=== PATIENT | female | born 1995 | race Caucasian/White ===

== ENCOUNTER 2019-05-04 00:30 | Emergency (ER) | payer SELFPAY ==
[2019-05-04] MEDS ORDERED: ALBUTEROL 2.5 MG/3 ML NEB SOL ONE ×2 (00:51→01:39)
[2019-05-04] MEDS ORDERED: AZITHROMYCIN 250 MG TAB ONE (00:51)
[2019-05-04] MEDS ORDERED: IPRATROPIUM BROM 0.5MG/2.5ML ONE (00:51)
[2019-05-04] MEDS ORDERED: predniSONE 20 MG TAB ONE (00:52)
[2019-05-04 01:58] LABS: Urine Blood NEGATIVE (NEG); Urine Glucose NEGATIVE (NEG); Urine Protein NEGATIVE (NEG); Urine pH 7.5 (5.0-7.0)
--- NOTE | 2019-05-04 03:06 | EDPHYS ---
Physician Documentation [facility] Name: Guillermina Akins Age: 24 yrs Sex: Female : 1995 Arrival Date: 05/04/2019 Time: 00:31 Bed X-Ray Private MD: ED Physician Jeff Torres HPI: 05/04 00:49 This 24 yrs old Female presents to ER via Ambulatory with complaints of rubén Shortness Of Breath. 00:49 The patient has shortness of breath at rest, with light activity. Onset: The rubén symptoms/episode began/occurred 2 day(s) ago. Duration: The symptoms are continuous, and are steadily getting worse. The patient's shortness of breath is aggravated by coughing, supine position, talking, walking, is alleviated by rest, sitting up, application of supplemental oxygen. Associated signs and symptoms: The patient has no apparent associated signs or symptoms. Severity of symptoms: At their worst the symptoms were mild moderate in the emergency department the symptoms are worse. The patient has experienced similar episodes in the past, a few times. 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 - Social history:: Smoking status: Patient/guardian denies using tobacco. - Ebola Screening: : Patient denies exposure to infectious person Patient denies travel to an Ebola-affected area in the 21 days before illness onset. - Family history:: not pertinent. ROS: 00:49 Constitutional: Negative for fever, chills, and weight loss, Eyes: Negative for injury, rubén pain, redness, and discharge, ENT: Negative for injury, pain, and discharge, Neck: Negative for injury, pain, and swelling, Cardiovascular: Negative for chest pain, palpitations, and edema, Abdomen/GI: Negative for abdominal pain, nausea, vomiting, diarrhea, and constipation, Back: Negative for injury and pain, : Negative for injury, bleeding, discharge, and swelling, MS/Extremity: Negative for injury and deformity, Skin: Negative for injury, rash, and discoloration, Neuro: Negative for headache, weakness, numbness, tingling, and seizure, Psych: Negative for depression, anxiety, suicide ideation, homicidal ideation, and hallucinations, Allergy/Immunology: Negative for hives, rash, and allergies, Endocrine: Negative for neck swelling, polydipsia, polyuria, polyphagia, and marked weight changes, Hematologic/Lymphatic: Negative for swollen nodes, abnormal bleeding, and unusual bruising. 00:49 Respiratory: Positive for cough, dyspnea on exertion, shortness of breath, wheezing, expiratory. Exam: 00:49 Constitutional: This is a well developed, well nourished patient who is awake, alert, rubén and in no acute distress. Head/Face: Normocephalic, atraumatic. Eyes: Pupils equal round and reactive to light, extra-ocular motions intact. Lids and lashes normal. Conjunctiva and sclera are non-icteric and not injected. Cornea within normal limits. Periorbital areas with no swelling, redness, or edema. ENT: Nares patent. No nasal discharge, no septal abnormalities noted. Tympanic membranes are normal and external auditory canals are clear. Oropharynx with no redness, swelling, or masses, exudates, or evidence of obstruction, uvula midline. Mucous membranes moist. Neck: Trachea midline, no thyromegaly or masses palpated, and no cervical lymphadenopathy. Supple, full range of motion without nuchal rigidity, or vertebral point tenderness. No Meningismus. Chest/axilla: Normal chest wall appearance and motion. Nontender with no deformity. No lesions are appreciated. Cardiovascular: Regular rate and rhythm with a normal S1 and S2. No gallops, murmurs, or rubs. Normal PMI, no JVD. No pulse deficits. Abdomen/GI: Soft, non-tender, with normal bowel sounds. No distension or tympany. No guarding or rebound. No evidence of tenderness throughout. Back: No spinal tenderness. No costovertebral tenderness. Full range of motion. Skin: Warm, dry with normal turgor. Normal color with no rashes, no lesions, and no evidence of cellulitis. MS/ Extremity: Pulses equal, no cyanosis. Neurovascular intact. Full, normal range of motion. Neuro: Awake and alert, GCS 15, oriented to person, place, time, and situation. Cranial nerves II-XII grossly intact. Motor strength 5/5 in all extremities. Sensory grossly intact. Cerebellar exam normal. Normal gait. Psych: Awake, alert, with orientation to person, place and time. Behavior, mood, and affect are within normal limits. 00:49 Respiratory: the patient does not display signs of respiratory distress, Respirations: labored breathing, that is mild, Breath sounds: bronchial sounds, decreased breath sounds, rhonchi, wheezing: expiratory Respiratory rate: 20 03:04 Musculoskeletal/extremity: DVT Exam: No signs of deep vein thrombosis. no pain, no rubén swelling, no tenderness, negative Homans' sign noted on exam, no appreciated bluish discoloration, no erythema, no increased warmth. Vital Signs: 00:35 BP 137 / 78; Pulse 84; Resp 20; Temp 98.7; Pulse Ox 100% on R/A; Weight 74.84 kg; aa1 Height 5 ft. 2 in. (157.48 cm); Pain 7/10; 02:08 BP 125 / 75; Pulse 85; Resp 17; Temp 98.8; Pulse Ox 99% on R/A; rr5 03:30 BP 101 / 65; Pulse 98; Resp 18; Temp 99.1; Pulse Ox 99% ; rr5 00:35 Body Mass Index 30.18 (74.84 kg, 157.48 cm) [facility] MDM: 00:33 Patient medically screened. [facility] 00:51 Data reviewed: vital signs, nurses notes, lab test result(s), radiologic studies, plain rubén films. 05/04 00:48 Order name: Urine Culture [facility] 05/04 01:38 Order name: Urine Dipstick--Ancillary (enter results) [facility] 05/04 00:48 Order name: Chest Pa And Lat (2 Views) XRAY [facility] 05/04 01:38 Order name: Urine --Ancillary (enter results) [facility] 05/04 01:39 Order name: Urine Dipstick-Ancillary; Complete Time: 03:04 [facility] 05/04 01:39 Order name: Urine --Ancillary; Complete Time: 03:04 [facility] 05/04 00:48 Order name: Urine Dipstick-Ancillary (obtain specimen); Complete Time: 01:33 [facility] 05/04 00:48 Order name: Urine Test (obtain specimen); Complete Time: 01:33 [facility] Administered Medications: 00:53 Drug: predniSONE 60 mg Route: PO; rr5 01:27 Follow up: Response: No adverse reaction ao 00:53 Drug: Zithromax 500 mg Route: PO; rr5 01:27 Follow up: Response: No adverse reaction ao 00:55 Drug: Albuterol - atroVENT (3:1) (2.5 mg - 0.5 mg) 3 ml Route: Nebulizer; rr5 01:27 Follow up: Response: No adverse reaction ao 01:49 Drug: Albuterol 5 mg Route: Inhalation; rr5 02:20 Follow up: Response: No adverse reaction; Marked relief of symptoms; Wheezing diminishedrr5 Disposition: 05/04/19 03:05 Discharged to Home. Impression: Dyspnea, Asthma, Acute upper respiratory infection, unspecified. - Condition is Stable. - Discharge Instructions: Asthma, Adult, Upper Respiratory Infection, Adult, Cool Mist Vaporizer, Asthma, Adult, Phpf-[id number], Cough, Adult, Nont-te-Gdyb, Cough, Adult. - Prescriptions for Albuterol Sulfate 2.5 mg /3 mL (0.083 %) Inhalation Solution for Nebulization - inhale 1 unit by NEBULIZATION route every 8 hours As needed; 1 box. Zithromax Z- Gilles 250 mg Oral Tablet - take 1 tablet by ORAL route as directed for 5 days Day 1 - take two (2) tablets one time. Day 2, 3, 4 , 5 take one (1) tablet once daily.; 6 tablet. Prednisone 20 mg Oral Tablet - take 2 tablets by ORAL route once daily for 7 days; 14 tablet. Albuterol Sulfate 90 mcg/actuation - inhale 1-2 puff by INHALATION route every 4-6 hours; 1 Inhaler. - Medication Reconciliation Form, Thank You Letter, Antibiotic Education, Prescription Opioid Use form. - Follow up: Private Physician; When: 2 - 3 days; Reason: Recheck today's complaints, Continuance of care, Re-evaluation by your physician. Follow up: Terry Beyer; When: 2 - 3 days; Reason: Recheck today's complaints, Re-evaluation by your physician. - Problem is new. - Symptoms have improved. Signatures: Dispatcher [employer] Laverne Washburn RN RN aa1 Jeff Torres MD MD cha Roque, Raymond, RN RN rr5 Trent Lewis RN Corrections: (The following items were deleted from the chart) 03:42 03:05 05/04/2019 03:05 Discharged to Home. Impression: Dyspnea; Asthma; Acute upper rr5 respiratory infection, unspecified. Condition is Stable. Discharge Instructions: Asthma, Adult, Upper Respiratory Infection, Adult, Cool Mist Vaporizer, Asthma, Adult, Qmbi-[id number], Cough, Adult, Fqje-nk-Jcfk, Cough, Adult. Prescriptions for Albuterol Sulfate 2.5 mg /3 mL (0.083 %) Inhalation Solution for Nebulization - inhale 1 unit by NEBULIZATION route every 8 hours As needed; 1 box, Zithromax Z-Gilles 250 mg Oral Tablet - take 1 tablet by ORAL route as directed for 5 days Day 1 - take two (2) tablets one time. Day 2, 3, 4 , 5 take one (1) tablet once daily.; 6 tablet, Albuterol Sulfate 90 mcg/actuation - inhale 1-2 puff by INHALATION route every 4-6 hours; 1 Inhaler, Prednisone 20 mg Oral Tablet - take 2 tablets by ORAL route once daily for 7 days; 14 tablet. and Forms are Medication Reconciliation Form, Thank You Letter, Antibiotic Education, Prescription Opioid Use. Follow up: Private Physician; When: 2 - 3 days; Reason: Recheck today's complaints, Continuance of care, Re-evaluation by your physician. Follow up: Terry Beyer; When: 2 - 3 days; Reason: Recheck today's complaints, Re-evaluation by your physician. Problem is new. Symptoms have improved. rubén
--- NOTE | 2019-05-04 03:06 | ER ---
Nurse's Notes [facility] Name: Guillermina Akins Age: 24 yrs Sex: Female : 1995 Arrival Date: 05/04/2019 Time: 00:31 Bed X-Ray Private MD: Diagnosis: Dyspnea;Asthma;Acute upper respiratory infection, unspecified Presentation: 05/04 00:35 Presenting complaint: Patient states: cough and difficulty breathing for past several aa1 days. Reports hx of asthma but no relief with her rescue inhaler. Transition of care: patient was not received from another setting of care. Onset of symptoms was April 30, 2019. Risk Assessment: Do you want to hurt yourself or someone else?. Initial Sepsis Screen: Does the patient meet any 2 criteria? No. Patient's initial sepsis screen is negative. Does the patient have a suspected source of infection? No. Patient's initial sepsis screen is negative. Care prior to arrival: None. 00:35 Method Of Arrival: Ambulatory aa1 00:35 Acuity: YVON 3 aa1 Triage Assessment: 00:35 General: Appears in no apparent distress. comfortable, Behavior is calm, cooperative, aa1 appropriate for age. 00:38 Respiratory: the patient has mild shortness of breath. 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 - Social history:: Smoking status: Patient/guardian denies using tobacco. - Ebola Screening: : Patient denies exposure to infectious person Patient denies travel to an Ebola-affected area in the 21 days before illness onset. - Family history:: not pertinent. Screenin:37 Abuse screen: Denies threats or abuse. Denies injuries from another. Nutritional rr5 screening: No deficits noted. Tuberculosis screening: No symptoms or risk factors identified. Fall Risk IV access (20 points). Total Jaocbs Fall Scale indicates No Risk (0-24 pts). Assessment: 00:38 General: Appears uncomfortable, mild distress. Behavior is calm, cooperative, rr5 appropriate for age. Pain: Complains of pain in chest Pain does not radiate. Pain currently is 7 out of 10 on a pain scale. Quality of pain is described as aching, Pain began 2-3 days ago. Is intermittent. Neuro: Level of Consciousness is awake, alert, obeys commands, Oriented to person, place, time, situation, Appropriate for age. Cardiovascular: Reports chest pain, Capillary refill < 3 seconds Patient's skin is warm and dry. Rhythm is regular. Respiratory: Reports shortness of breath cough that is Airway is patent Respiratory effort is even, Respiratory pattern is tachypnea Breath sounds with wheezes. GI: No signs and/or symptoms were reported involving the gastrointestinal system. : No signs and/or symptoms were reported regarding the genitourinary system. EENT: No signs and/or symptoms were reported regarding the EENT system. Derm: Skin is intact, is healthy with good turgor, Skin temperature is warm. Musculoskeletal: Circulation, motion, and sensation intact. Capillary refill < 3 seconds. 01:30 Reassessment: Patient appears in no apparent distress at this time. Patient is alert, rr5 oriented x 3, equal unlabored respirations, skin warm/dry/pink. Patient states feeling better. Patient states symptoms have improved. 01:30 Respiratory: mild wheezing sound. rr5 02:20 Reassessment: Patient appears in no apparent distress at this time. Patient is alert, rr5 oriented x 3, equal unlabored respirations, skin warm/dry/pink. breathing spontaneously at room air. vitally stable. feels relieved now as verbalized by the patient. Patient states feeling better. Patient states symptoms have improved. 03:30 Reassessment: Patient appears in no apparent distress at this time. Patient is alert, rr5 oriented x 3, equal unlabored respirations, skin warm/dry/pink. discharge instruction given and explained without complaints made, verbalized understanding. Patient states feeling better. Patient states symptoms have improved. Vital Signs: 00:35 BP 137 / 78; Pulse 84; Resp 20; Temp 98.7; Pulse Ox 100% on R/A; Weight 74.84 kg; aa1 Height 5 ft. 2 in. (157.48 cm); Pain 7/10; 02:08 BP 125 / 75; Pulse 85; Resp 17; Temp 98.8; Pulse Ox 99% on R/A; rr5 03:30 BP 101 / 65; Pulse 98; Resp 18; Temp 99.1; Pulse Ox 99% ; rr5 00:35 Body Mass Index 30.18 (74.84 kg, 157.48 cm) aa1 ED Course: 00:31 Patient arrived in ED. cf2 00:33 Petar Francis RN is Primary Nurse. rr5 00:33 Jeff Torres MD is Attending Physician. rubén 00:35 Arm band placed on right wrist. aa1 00:37 Patient has correct armband on for positive identification. Bed in low position. Call rr5 light in reach. Pulse ox on. NIBP on. 00:44 Triage completed. aa1 00:55 Initial Neb Treatment Given as ordered Patient was instructed and evaluated on rr5 procedure. 01:20 Initial Neb Treatment Given as ordered Patient tolerated procedure well without adverse rr5 effect. 01:33 Urine collected: clean catch specimen, clear. rr5 02:06 Subsequent Neb Treatment Given as ordered Patient tolerated procedure well without rr5 adverse effect. 03:05 Terry Beyer MD is Referral Physician. rubén 03:41 No provider procedures requiring assistance completed. Patient did not have IV access rr5 during this emergency room visit. 07:00 Chest Pa And Lat (2 Views) XRAY In Process Unspecified. EDMS Administered Medications: 00:53 Drug: predniSONE 60 mg Route: PO; rr5 01:27 Follow up: Response: No adverse reaction ao 00:53 Drug: Zithromax 500 mg Route: PO; rr5 01:27 Follow up: Response: No adverse reaction ao 00:55 Drug: Albuterol - atroVENT (3:1) (2.5 mg - 0.5 mg) 3 ml Route: Nebulizer; rr5 01:27 Follow up: Response: No adverse reaction ao 01:49 Drug: Albuterol 5 mg Route: Inhalation; rr5 02:20 Follow up: Response: No adverse reaction; Marked relief of symptoms; Wheezing diminishedrr5 Outcome: 03:05 Discharge ordered by . rubén 03:41 Discharged to home ambulatory. rr5 03:41 Condition: stable 03:41 Discharge instructions given to patient, Instructed on discharge instructions, follow up and referral plans. medication usage, Demonstrated understanding of instructions, follow-up care, medications, Prescriptions given X 4. 03:42 Patient left the ED. rr5 Signatures: Dispatcher [employer] EDMS Laverne Mobley RN RN aa1 Jeff Torres MD MD cha Ortiz Trent, RN RN ao Petar Francis RN RN rr5 Anabela Bhatia [facility]
[2019-05-04 03:55] VITALS: O2SAT 99
[2019-05-04 03:56] VITALS: BP 101/65; TEMP 99.1
--- NOTE | 2019-05-04 08:26 | RAD REPORT ---
EXAM DESCRIPTION: RAD - Chest Pa And Lat (2 Views) - 05/04/2019 6:59 am CLINICAL HISTORY: Cough;Congestion Chest pain. COMPARISON: No comparisons FINDINGS: Prominent interstitial markings. The heart is normal in size. No displaced fractures. IMPRESSION: Prominent interstitial markings suggesting bronchitis or asthma.
== END 2019-05-04 03:42 | disposition home or self-care (01) ==
LOC: ER 00:30
DX: J06.9 Acute upper respiratory infection, unspecified (principal); J45.909 Unspecified asthma, uncomplicated; R06.00 Dyspnea, unspecified; Z88.0 Allergy status to penicillin
CPT/HCPCS: 71046; 81003; 81025; 87086; 87088; J7512

== ENCOUNTER 2019-05-09 00:16 | Emergency (ER) | payer SELFPAY ==
[2019-05-09] MEDS ORDERED: IPRATROPIUM BROM 0.5MG/2.5ML ONE (00:32)
[2019-05-09] MEDS ORDERED: ALBUTEROL 2.5 MG/3 ML NEB SOL ONE (00:32)
--- NOTE | 2019-05-09 01:23 | ER ---
Nurse's Notes [facility] Name: Guillermina Akins Age: 24 yrs Sex: Female : 1995 Arrival Date: 05/09/2019 Time: 00:17 Bed 19 Private MD: Diagnosis: Acute bronchospasm Presentation: 05/09 00:24 Presenting complaint: Patient states: Difficulty breathing since the weather change, lp1 unable to get prescriptions due to insurance, shortness of breath worse tonight. Transition of care: patient was not received from another setting of care. Onset of symptoms was May 09, 2019. Risk Assessment: Do you want to hurt yourself or someone else? Patient reports no desire to harm self or others. Initial Sepsis Screen: Does the patient meet any 2 criteria? No. Patient's initial sepsis screen is negative. Does the patient have a suspected source of infection? No. Patient's initial sepsis screen is negative. Care prior to arrival: None. 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 - Social history:: Smoking status: Patient/guardian denies using tobacco. - Ebola Screening: : No symptoms or risks identified at this time. Screenin:28 Abuse screen: Denies threats or abuse. Denies injuries from another. Nutritional lp1 screening: No deficits noted. Tuberculosis screening: No symptoms or risk factors identified. Fall Risk None identified. Assessment: 00:36 General: Appears distressed, comfortable, Behavior is calm, anxious, restless, Reports. lc1 Pain: Denies pain. Neuro: No deficits noted. Cardiovascular: No deficits noted. Respiratory: Reports shortness of breath at rest since 8pm Respiratory effort is even, labored, using tripod position, Respiratory pattern is tachypnea Breath sounds are diminished Breath sounds with wheezes bilaterally. in left lower lobe and right lower lobe. GI: No signs and/or symptoms were reported involving the gastrointestinal system. : No signs and/or symptoms were reported regarding the genitourinary system. EENT: No signs and/or symptoms were reported regarding the EENT system. Derm: No signs and/or symptoms reported regarding the dermatologic system. Musculoskeletal: No signs and/or symptoms reported regarding the musculoskeletal system. 01:28 Reassessment: Patient and/or family updated on plan of care and expected duration. Pain lc1 level reassessed. Patient is alert, oriented x 3, equal unlabored respirations, skin warm/dry/pink. Patient states feeling better. Patient states symptoms have improved. Vital Signs: 00:27 BP 113 / 85; Pulse 86; Resp 20; Temp 98.4(O); Pulse Ox 100% on R/A; Weight 72.57 kg; lp1 Height 5 ft. 2 in. (157.48 cm); Pain 0/10; 01:28 Pulse 117; Pulse Ox 98% on R/A; lc1 00:27 Body Mass Index 29.26 (72.57 kg, 157.48 cm) lp1 ED Course: 00:17 Patient arrived in ED. cf2 00:26 Oscar Montoya MD is Attending Physician. tw4 00:27 Triage completed. lp1 00:27 Arm band placed on. lp1 00:29 Sierra Hernandez is Primary Nurse. lc1 00:36 Patient has correct armband on for positive identification. Bed in low position. Side lc1 rails up X 1. Pulse ox on. NIBP on. 00:36 No provider procedures requiring assistance completed. Initial Neb Treatment Given as lc1 ordered Patient was instructed and evaluated on procedure. 00:55 CXR XRAY In Process Unspecified. EDMS 01:28 Patient did not have IV access during this emergency room visit. 1 Administered Medications: 00:36 Drug: DuoNeb (3:1) (2.5 mg - 0.5 mg) 3 ml Route: Nebulizer; 1 01:31 Follow up: Response: No adverse reaction 1 Outcome: :22 Discharge ordered by . tw4 01:28 Discharged to home ambulatory. lc1 01:28 Condition: good 01:28 Discharge instructions given to patient, Instructed on discharge instructions, follow up and referral plans. medication usage, Demonstrated understanding of instructions, follow-up care, medications, Prescriptions given X 2. 01:32 Patient left the ED. [facility] Signatures: Dispatcher [employer] EDMS Sierra Hernandez lc1 Carly Rojo, MICHELLE RN lp1 Oscar Montoya MD MD tw4 Anabela Bhatia 2
--- NOTE | 2019-05-09 01:23 | EDPHYS ---
Physician Documentation [facility] Name: Guillermina Akins Age: 24 yrs Sex: Female : 1995 Arrival Date: 05/09/2019 Time: 00:17 Bed 19 Private MD: ED Physician Oscar oMntoya HPI: 05/09 07:44 This 24 yrs old Female presents to ER via Ambulatory with complaints of tw4 Breathing Difficulty. 07:44 The patient has shortness of breath at rest. tw4 07:44 Onset: The symptoms/episode began/occurred yesterday. Duration: The symptoms are tw4 continuous, and are steadily getting worse. The patient's shortness of breath has no apparent modifying factors. Severity of symptoms: At their worst the symptoms were moderate in the emergency department the symptoms are unchanged. The patient has not experienced similar symptoms in the past. 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 - Social history:: Smoking status: Patient/guardian denies using tobacco. - Ebola Screening: : No symptoms or risks identified at this time. ROS: 07:44 Constitutional: Negative for fever, chills, and weight loss, Eyes: Negative for injury, tw4 pain, redness, and discharge, Cardiovascular: Negative for chest pain, palpitations, and edema. 07:44 Abdomen/GI: Negative for abdominal pain, nausea, vomiting, diarrhea, and constipation, Back: Negative for injury and pain, MS/Extremity: Negative for injury and deformity, Skin: Negative for injury, rash, and discoloration. 07:44 Respiratory: Positive for cough, shortness of breath, wheezing. Exam: 07:44 Constitutional: This is a well developed, well nourished patient who is awake, alert, tw4 and in no acute distress. Head/Face: Normocephalic, atraumatic. Chest/axilla: Normal chest wall appearance and motion. Nontender with no deformity. No lesions are appreciated. Cardiovascular: Regular rate and rhythm with a normal S1 and S2. No gallops, murmurs, or rubs. Normal PMI, no JVD. No pulse deficits. Abdomen/GI: Soft, non-tender, with normal bowel sounds. No distension or tympany. No guarding or rebound. No evidence of tenderness throughout. MS/ Extremity: Pulses equal, no cyanosis. Neurovascular intact. Full, normal range of motion. Neuro: Awake and alert, GCS 15, oriented to person, place, time, and situation. Cranial nerves II-XII grossly intact. Motor strength 5/5 in all extremities. Sensory grossly intact. Cerebellar exam normal. Normal gait. 07:44 Respiratory: the patient does not display signs of respiratory distress, Respirations: normal, Breath sounds: wheezing: Vital Signs: 00:27 BP 113 / 85; Pulse 86; Resp 20; Temp 98.4(O); Pulse Ox 100% on R/A; Weight 72.57 kg; lp1 Height 5 ft. 2 in. (157.48 cm); Pain 0/10; 01:28 Pulse 117; Pulse Ox 98% on R/A; lc1 00:27 Body Mass Index 29.26 (72.57 kg, 157.48 cm) lp1 MDM: 00:26 Patient medically screened. tw4 07:44 Differential diagnosis: asthma, Bronchitis pneumonia, reactive airway disease. tw4 Antibiotic administration: Not indicated. Data reviewed: vital signs, nurses notes. Test interpretation: by ED physician or midlevel provider: plain radiologic studies. Medication response: albuterol nebulizer treatment(s) relieved the patient's symptoms. The patient is no longer wheezing. Response to treatment: the patient's symptoms have resolved after treatment, and as a result, I will discharge patient. 05/09 00:27 Order name: CXR XRAY tw4 Administered Medications: 00:36 Drug: DuoNeb (3:1) (2.5 mg - 0.5 mg) 3 ml Route: Nebulizer; 1 01:31 Follow up: Response: No adverse reaction 1 Disposition: 05/09/19 01:22 Discharged to Home. Impression: Acute bronchospasm. - Condition is Stable. - Discharge Instructions: Asthma, Adult, Bronchospasm, Adult, How to Use an Inhaler. - Prescriptions for Medrol (Gilles) 4 mg Oral Tablets, Dose Pack - take 1 tablet by ORAL route as directed - follow package instructions; 1 packet. Albuterol Sulfate 90 mcg/actuation - inhale 1-2 puff by INHALATION route every 4-6 hours; 1 Inhaler. - Medication Reconciliation Form, Thank You Letter, Antibiotic Education, Prescription Opioid Use form. - Follow up: Private Physician; When: Upon discharge from the Emergency Department; Reason: Recheck today's complaints, Continuance of care. - Problem is new. - Symptoms have improved. Signatures: Dispatcher [employer] EDOK Sierra Hernandez lc1 Carly Rojo, RN RN lp1 Oscar Montoya MD MD tw4 Corrections: (The following items were deleted from the chart) 01:32 01:22 05/09/2019 01:22 Discharged to Home. Impression: Acute bronchospasm. Condition is lc1 Stable. Forms are Medication Reconciliation Form, Thank You Letter, Antibiotic Education, Prescription Opioid Use. Follow up: Private Physician; When: Upon discharge from the Emergency Department; Reason: Recheck today's complaints, Continuance of care. Problem is new. Symptoms have improved. tw4
[2019-05-09 02:02] VITALS: BP 113/85; TEMP 98.4
[2019-05-09 02:03] VITALS: O2SAT 98
--- NOTE | 2019-05-09 07:51 | RAD REPORT ---
EXAM DESCRIPTION: RAD - Chest Single View - 05/09/2019 12:55 am CLINICAL HISTORY: COUGH Chest pain. COMPARISON: Chest Pa And Lat (2 Views) dated 05/04/2019 FINDINGS: Portable technique limits examination quality. The lungs are grossly clear. The heart is normal in size. No displaced fractures. IMPRESSION: No acute intrathoracic process suspected.
== END 2019-05-09 01:32 | disposition home or self-care (01) ==
LOC: ER 00:16
DX: J98.01 Acute bronchospasm (principal); Z88.0 Allergy status to penicillin
CPT/HCPCS: 71045; 94640; 99284

== ENCOUNTER 2019-07-16 11:09 | Emergency (ER) | payer OTHER ==
--- NOTE | 2019-07-16 13:26 | ER ---
Nurse's Notes [facility] Name: Guillermina Akins Age: 24 yrs Sex: Female : 1995 Arrival Date: 07/16/2019 Time: 11:16 Bed DIS2 Private MD: Diagnosis: Acute pharyngitis;Acute upper respiratory infection, unspecified Presentation: 07/16 11:19 Presenting complaint: Patient states: starting yesterday congestion and cough. tw2 Transition of care: patient was not received from another setting of care. Onset of symptoms was July 16, 2019. Risk Assessment: Do you want to hurt yourself or someone else? Patient reports no desire to harm self or others. Initial Sepsis Screen: Does the patient meet any 2 criteria? No. Patient's initial sepsis screen is negative. Does the patient have a suspected source of infection? No. Patient's initial sepsis screen is negative. Care prior to arrival: None. 11:19 Method Of Arrival: Ambulatory tw2 11:19 Acuity: YVON 4 tw2 Triage Assessment: 11:21 General: Appears in no apparent distress. Behavior is calm, cooperative, appropriate tw2 for age. Pain: Complains of pain in uvula, left aspect of posterior pharynx and right aspect of posterior pharynx. 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 - Coronavirus screen:: The patient has NOT traveled to [place], [place], or [place] in the past 14 days. - Social history:: Smoking status: . - Ebola Screening: : Patient denies travel to an Ebola-affected area in the 21 days before illness onset. Screenin:00 Abuse screen: Denies threats or abuse. Denies injuries from another. Nutritional iw screening: No deficits noted. Tuberculosis screening: No symptoms or risk factors identified. Fall Risk None identified. Assessment: 12:30 General: Appears in no apparent distress. Behavior is calm, cooperative. Neuro: Level iw of Consciousness is awake, alert, obeys commands, Oriented to person, place, time, situation, Moves all extremities. Full function. Cardiovascular: Patient's skin is warm and dry. Respiratory: Reports cough that is. Derm: Skin is intact, is healthy with good turgor. Musculoskeletal: Range of motion: intact in all extremities. Vital Signs: 11:21 BP 104 / 69; Pulse 113; Resp 18; Temp 99.3(TE); Pulse Ox 98% on R/A; Weight 71.67 kg tw2 (R); Height 5 ft. 2 in. (157.48 cm); Pain 8/10; 11:21 Body Mass Index 28.90 (71.67 kg, 157.48 cm) tw2 ED Course: 11:16 Patient arrived in ED. mr 11:20 Triage completed. tw2 11:21 Arm band placed on. tw2 11:28 Keshav Lee PA is PHCP. [facility] 11:28 Jeff Torres MD is Attending Physician. [facility] 11:35 Maggie Caal, RN is Primary Nurse. iw 12:18 Flu Sent. ca1 12:19 Strep Sent. ca1 13:00 Patient has correct armband on for positive identification. iw 13:36 No provider procedures requiring assistance completed. Patient did not have IV access iw during this emergency room visit. Administered Medications: No medications were administered Outcome: 13:25 Discharge ordered by . [facility] 13:36 Discharged to home ambulatory, with family. iw 13:36 Condition: good 13:36 Discharge instructions given to patient, Instructed on discharge instructions, follow up and referral plans. medication usage, Demonstrated understanding of instructions, follow-up care, medications, Prescriptions given X 1. 13:37 Patient left the ED. iw Signatures: Keshav Lee PA PA jmm Rivera, Mary Maggie Caal, RN RN iw Rica Schumacher RN RN tw2 Collette Gallo RN RN ca1
--- NOTE | 2019-07-16 13:26 | EDPHYS ---
Physician Documentation [facility] Name: Guillermina Akins Age: 24 yrs Sex: Female : 1995 Arrival Date: 07/16/2019 Time: 11:16 Bed DIS2 Private MD: ED Physician Jeff Torres HPI: 07/16 11:32 This 24 yrs old Female presents to ER via Ambulatory with complaints of Flu jmm Symptoms. 11:32 The patient or guardian reports difficulty breathing. Onset: The symptoms/episode jmm began/occurred gradually, 1 day(s) ago. Modifying factors: The symptoms are alleviated by nothing. the symptoms are aggravated by nothing. Associated signs and symptoms: Pertinent positives: fever, sore throat, Pertinent negatives: vomiting. This is a 24 year old female with a history of asthma that presents to the ED with complaints of sore throat, fever, chills, cough, congestion beginning yesterday. Son has similar symptoms. . 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 - Coronavirus screen:: The patient has NOT traveled to [place], [place], or [place] in the past 14 days. - Social history:: Smoking status: . - Ebola Screening: : Patient denies travel to an Ebola-affected area in the 21 days before illness onset. ROS: 11:32 Constitutional: Positive for body aches, fever. jmm 11:32 ENT: Positive for sinus congestion, sore throat. 11:32 Respiratory: Positive for cough. 11:32 All other systems are negative. Exam: 11:32 Constitutional: This is a well developed, well nourished patient who is awake, alert, jmm and in no acute distress. Head/Face: atraumatic. Eyes: EOMI, no conjunctival erythema appreciated Neck: Trachea midline, Supple 11:32 Chest/axilla: Normal chest wall appearance and motion. Cardiovascular: Regular rate and rhythm. No edema appreciated Respiratory: Normal respirations, no respiratory distress appreciated Abdomen/GI: Non distended, soft Back: Normal ROM Skin: General appearance color normal MS/ Extremity: Moves all extremities, no obvious deformities appreciated, no edema noted to the lower extremities Neuro: Awake and alert, normal gait Psych: Behavior is normal, Mood is normal, Patient is cooperative and pleasant 11:32 ENT: TM's: erythema, that is moderate, on the right, Posterior pharynx: erythema, that is moderate. Vital Signs: 11:21 BP 104 / 69; Pulse 113; Resp 18; Temp 99.3(TE); Pulse Ox 98% on R/A; Weight 71.67 kg tw2 (R); Height 5 ft. 2 in. (157.48 cm); Pain 8/10; 11:21 Body Mass Index 28.90 (71.67 kg, 157.48 cm) tw2 MDM: 11:32 Patient medically screened. [facility] 13:24 Data reviewed: vital signs, nurses notes. Counseling: I had a detailed discussion with laila the patient and/or guardian regarding: the historical points, exam findings, and any diagnostic results supporting the discharge/admit diagnosis, lab results, the need for outpatient follow up, to return to the emergency department if symptoms worsen or persist or if there are any questions or concerns that arise at home. ED course: Patient is alert and non toxic in appearance in the ED. No signs of resp distress appreciated. Patient is advised to follow up with pcp and otherwise given strict return precautions. patient understood and agrees with the plan of care. . 07/16 11:58 Order name: Flu; Complete Time: 13:15 [facility] 07/16 11:58 Order name: Strep; Complete Time: 12:55 [facility] 07/16 12:56 Order name: Throat Culture EDMS Administered Medications: No medications were administered Disposition: 14:39 Co-signature as Attending Physician, Jeff Torres MD I agree with the assessment and [facility] plan of care. Disposition: 07/16/19 13:25 Discharged to Home. Impression: Acute pharyngitis, Acute upper respiratory infection, unspecified. - Condition is Stable. - Discharge Instructions: Pharyngitis, Upper Respiratory Infection, Adult. - Prescriptions for Zithromax Z- Gilles 250 mg Oral Tablet - take 1 tablet by ORAL route as directed for 5 days Day 1 - take two (2) tablets one time. Day 2, 3, 4 , 5 take one (1) tablet once daily.; 6 tablet. - Work release form, Medication Reconciliation Form, Thank You Letter, Antibiotic Education, Prescription Opioid Use form. - Follow up: Private Physician; When: 2 - 3 days; Reason: Recheck today's complaints, Continuance of care, Re-evaluation by your physician. Signatures: Dispatcher [employer] EDJeff Canchola MD MD cha Mickail, Joel, PA PA jmm Williams, Irene, MICHELLE RN Rica Flores RN RN tw2 Corrections: (The following items were deleted from the chart) 13:37 13:25 07/16/2019 13:25 Discharged to Home. Impression: Acute pharyngitis; Acute upper iw respiratory infection, unspecified. Condition is Stable. Forms are Medication Reconciliation Form, Thank You Letter, Antibiotic Education, Prescription Opioid Use. Follow up: Private Physician; When: 2 - 3 days; Reason: Recheck today's complaints, Continuance of care, Re-evaluation by your physician. laila
[2019-07-16 14:08] VITALS: BP 104/69; TEMP 99.3; O2SAT 98
== END 2019-07-16 13:37 | disposition home or self-care (01) ==
LOC: ER 11:09
DX: J02.9 Acute pharyngitis, unspecified (principal); Z88.0 Allergy status to penicillin
CPT/HCPCS: 87070; 87081; 87804; 99283

== ENCOUNTER 2020-06-05 11:58 | Emergency (ER) | payer OTHER ==
--- OUTSIDE RECORDS SUMMARY | 2020-06-05 12:00 | XMS REPORT | Summary of Care ---
:1995 Author Organization [facility] Address [address] [place] [address] Care Team Providers Name Role Phone Micheline Bryan MD Primary Care Provider Encounter Details Date Type Department Care Team Description 04/11/2020 Letter (Out) [facility] Estefania [facility] [address] [facility] [address] [facility] [address] [place] [address] [place], [place] [id number] Allergies Active Allergy Reactions Severity Noted Date Comments Penicillins Anaphylaxis High 04/30/2017 Shrimp Shortness of Breath, Swelling High 05/01/2017 documented as of this encounter (statuses as of 04/11/2020) Medications No known medicationsdocumented as of this encounter (statuses as of 04/11/2020) Active Problems Problem Noted Date Cellulitis of thigh 05/01/2017 Failure of outpatient treatment 04/30/2017 documented as of this encounter (statuses as of 04/11/2020) Immunizations Name Administration Dates Next Due Influenza Virus Vaccine Quad IM 3+ YRS 05/02/2017 documented as of this encounter Social History Tobacco Use Types Packs/Day Years Used Date Current Every Day Smoker Smokeless Tobacco: Never Used Sex Assigned at Date Recorded Not on file documented as of this encounter Last Filed Vital Signs Not on filedocumented in this encounter Plan of Treatment Health Maintenance Due Date Last Done Comments VARICELLA VACCINES (1 of 2 - 1995 2-dose childhood series) HPV VACCINES (1 - 2-dose series) 2005 Depression Screening 2006 DTaP,Tdap,and Td Vaccines (1 - 2013 Tdap) PAP SMEAR 2015 INFLUENZA VACCINE (#1) 2020 05/02/2017 PNEUMOCOCCAL 0-64 YEARS COMBINED Aged Out No longer eligible based on SERIES patient's age to complete this topic documented as of this encounter Results Not on filedocumented in this encounter Insurance Payer Benefit Plan / Subscriber ID Effective Phone Address T e Group [facility] [id number] 2019-Prese [address] Medic [employer] HEALTH CHOICE - HEALTH CHO[place] [id number] 1 MANAGED MEDICAID [place], [place] [phone] documented as of this encounter
--- OUTSIDE RECORDS SUMMARY | 2020-06-05 12:00 | XMS REPORT | Continuity of Care Document ---
:1995 Author Organization [facility] t Address [address] [place] [address] [address] [place] [address] Care Team Providers Name Role Phone Oumar Morejon MD Attending Clinician Problems This patient has no known problems. Allergies, Adverse Reactions, Alerts This patient has no known allergies or adverse reactions. Medications This patient has no known medications. Procedures This patient has no known procedures. Encounters Start End Encounter Admission Attending Care Care Encounter Source Date/Time Date/Time Type Type Clinicians Facility Department ID 2020-04-18 2020-04-21 Office ENRRIQUE Morejon [id number] 13:02:53 08:21:27 Visit [facility] [id number] [facility] [id number] Results This patient has no known results.
--- OUTSIDE RECORDS SUMMARY | 2020-06-05 12:01 | XMS REPORT | Summary of Care ---
:1995 Author Organization [facility] Address [address] [place] [address] Care Team Providers Name Role Phone Micheline Bryan MD Primary Care Provider Reason for Visit Reason Comments Establish Care (Routine) Status Reason Specialty Diagnoses / Referred By Referred To Procedures Contact Contact New Request Plastic Surgery Diagnoses Hypertrophy of breast Estefania Torres Procedures CONSULT PLASTIC SURGERY L [address] [place] [address] Encounter Details Date Type Department Care Team Description 04/18/2020 Office Visit [facility] Plastic Pippa Morejon mastia (Primary Dx); Surgery- Fracisco Oseguera MD Chronic pain of both shoulders; [facility] Clinics [address] Chronic midline thoracic jevon k pain; [address], [address] Neck pain 5[address] [place], [place] [phone] Allergies Active Allergy Reactions Severity Noted Date Comments Penicillins Anaphylaxis High 04/30/2017 Shrimp Shortness of Breath, Swelling High 05/01/2017 documented as of this encounter (statuses as of 04/18/2020) Medications Medication Sig Dispensed Refills Start Date End Date Status PAROXETINE HCL ORAL Take by mouth. 0 Active documented as of this encounter (statuses as of 04/18/2020) Active Problems Problem Noted Date Cellulitis of thigh 05/01/2017 Failure of outpatient treatment 04/30/2017 documented as of this encounter (statuses as of 04/18/2020) Immunizations Name Administration Dates Next Due Influenza Virus Vaccine Quad IM 3+ YRS 05/02/2017 documented as of this encounter Social History Tobacco Use Types Packs/Day Years Used Date Current Every Day Smoker Smokeless Tobacco: Never Used Sex Assigned at Date Recorded Not on file COVID-19 Exposure Response Date Recorded In the last month, have you been in contact with No / Unsure 04/18/2020 1:16 PM CDT someone who was confirmed or suspected to have Coronavirus / COVID-19? documented as of this encounter Last Filed Vital Signs Vital Sign Reading Time Taken Comments Blood Pressure 120/77 04/18/2020 1:16 PM CDT Pulse 79 04/18/2020 1:16 PM CDT Temperature 37.2 C (98.9 F) 04/18/2020 1:16 PM CDT Respiratory Rate 16 04/18/2020 1:16 PM CDT Oxygen Saturation - - Inhaled Oxygen Concentration - - Weight 84.1 kg (185 lb 6.4 oz) 04/18/2020 1:16 PM CDT Height 157.5 cm (5' 2") 04/18/2020 1:16 PM CDT Body Mass Index 33.91 04/18/2020 1:16 PM CDT documented in this encounter Progress Notes Neymar Montes MD - 04/18/2020 1:00 PM CDT Visit Type: Clinic Note / History and Physical Chief Complaint: Breast/back pain HPI Guillermina Akins is a 25 year old female who complains of the following symptoms for over 5 years. Patient's large breast have been painful for several years, but have since gotten worse since her child. She had her child 5 years ago, no plans for future children, no plans on breast feeding. Patient of note lost 30lbs last year, but since has gained it back, but reports weight stability for 6 months. Patient reports her breast size did not change with the weight loss or gain. Patient vapes and also smokes one pack of cig/week. Symptom Y (yes)/N (no) Headaches Y Neck Pain Y Shoulder Pain Y Upper Back Pain Y Painful kyphosis as documented by Xray N Pain/discomfort/ulceration from bra straps cutting into shoulders Y Skin breakdown due to soft tissue infection from overlying breast tissue N She has undergone the following conservative measures with no relief: Treatment Y (yes)/N (no) Medically supervised weight loss program for at least 3 months N Dietary modifications and aerobic exercise for at least 6 months Y Seen an orthopedic or spine surgeon for spinal pain N Used dermatologic therapy for ulcers or refractory skin infections N Used specialty bras Y Used NSAIDs for pain relief Y Participated in physical therapy N She is a size 40 DDD cup. She would ideally like to be a size C-D cup. Body mass index is Body mass index is 33.91 kg/m. Body surface area is Body surface area is 1.92 meters squared. Her weight has been stable for at least 6 months. Histories PMH: Anxiety/depression PSH: None SH: 1ppweek, vaping She does not have family history of breast cancer Social History Socioeconomic History Marital status: Single Spouse name: Not on file Number of children: Not on file Years of education: Not on file Highest education level: Not on file Occupational History Not on file Social Needs Financial resource strain: Not on file Food insecurity Worry: Not on file Inability: Not on file Transportation needs Medical: Not on file Non-medical: Not on file Tobacco Use Smoking status: Current Every Day Smoker Smokeless tobacco: Never Used Substance and Sexual Activity Alcohol use: Not on file Drug use: Not on file Sexual activity: Not on file Lifestyle Physical activity Days per week: Not on file Minutes per session: Not on file Stress: Not on file Relationships Social connections Talks on phone: Not on file Gets together: Not on file Attends uatsdin service: Not on file Active member of club or organization: Not on file Attends meetings of clubs or organizations: Not on file Relationship status: Not on file Intimate partner violence Fear of current or ex partner: Not on file Emotionally abused: Not on file Physically abused: Not on file Forced sexual activity: Not on file Other Topics Concern Not on file Social History Narrative Not on file She is a current smoker. Review of Systems (-)=Negative,(+)=Positive REVIEW OF SYSTEMS: Constitutional: +Headaches Eyes: negative Ears: negative Nose/Sinuses: negative Mouth/Throat: negative Cardiovascular: negative Respiratory: negative Gastrointestinal: negative Genitourinary: negative Musculoskeletal: +Neck pain, Upper back pain, Shoulder pain, Kyphosis Integumentary: No Intertrigo, ulceration Neuro: negative Psych: negative Endocrine: negative Hem/Lymph: negative Allergy/Immunology: negative Physical Exam (-)=Negative,(+)=Positive BP 120/77 | Pulse 79 | Temp 37.2 C (98.9 F) (Oral) | Resp 16 | Ht 1.575 m (5' 2") | Wt 84.1kg (185 lb 6.4 oz) | BMI 33.91 kg/m General: alert, oriented times three, no apparent distress, appearing age appropriate Skin: skin color, texture and turgor are normal Head: normocephalic, no masses, lesions, tenderness or abnormalities Eyes: anicteric sclera, pupils are equally round and reactive to light, extraocular movements are intact Neck: neck supple, no adenopathy, normal size Breasts: bilateral breast hypertrophy Grade III ptosis, no active intertrigo, no masses, lumps, or tenderness R L SN-N 36 33 MC-N 33 31 N-IMF 16 15 Neuro: unremarkable without focal findings Extremities/Musculoskeletal: no cyanosis, no edema, intact times four Laboratory No new labs Radiology No new Radiology Procedure Note Not applicable. Assessment/Plan Guillermina Akins is a 25 year old female with symptomatic macromastia who has failed conservative mgmt after at least 6 months of non-operative therapeutic measures. There is a reasonable likelihood thather symptoms are primarily due to macromastia and that reduction mammoplasty will likely result in improvement of chronic pain and symptoms. Based on Schnur Scale and her Body surface area is 1.92 meters squared. the Planned excision is: 575g each. - Risks/benefits and complications including but not limited to: pain, bleeding, infection, scarring, wound breakdown, loss of nipple sensation, loss NAC, asymmetry, poor cosmesis, need for repeat/additional procedures, damage to adjacent/surrounding structures, as well as alternatives to procedure were discussed with the patient who verbalized understanding. - Educated on procedure in detail including location of scars and anticipated postoperative recoverytimeframe - Encouraged to obtain supportive brassier without underwire for postop - All questions were answered to patient satisfaction. - Discussed and counseled patient on smoking cessation, will need to return to clinic in 4 weeks forurine test. - RTC in 4 weeks - Instructional packet provided for self-education Photos taken by parish Body surface area and cutoff weight of average breast tissue removed Body Surface Area (m2) Average grams of tissue per breast to be removed 1.35 199 1.40 218 1.45 238 1.50 260 1.55 284 1.60 310 1.65 338 1.70 370 1.75 404 1.80 441 1.85 482 1.90 527 1.95 575 2.00 628 2.05 687 2.10 750 2.15 819 2.20 895 2.25 978 2.30 1068 2.35 1167 2.40 1275 2.45 1393 2.50 1522 2.55 1662 2.60 1806 2.65 1972 2.70 2154 2.75 2352 2.80 2568 2.85 2804 2.90 3061 2.95 3343 3.00 3650 3.05 3985 3.10 4351 3.15 4750 3.20 5186 3.25 5663 3.30 6182 3.35 6750 3.40 7369 3.45 8045 3.50 8783 3.55 9589 3.60 29271 3.65 85049 3.70 54161 3.75 58216 3.80 97261 3.85 60002 3.90 89050 3.95 82585 4.00 27030 4.05 84319 4.10 35683 4.15 59911 4.20 73880 4.25 16690 4.30 32387 4.35 34575 4.40 07486 4.45 90209 4.50 35366 4.55 66908 4.60 21142 4.65 45138 4.70 76360 4.75 48390 4.80 46408 Lesvia foss RN - 04/18/2020 1:00 PM CDTBreast Examination and measurements of breast chaperoned by Lesvia Sunshine RN. documented in this encounter Plan of Treatment Date Type Specialty Care Team Description 05/23/2020 Office Visit Plastic Surgery Pippa Morejon MD [address] [place] [address] [address] [place] [address] Health Maintenance Due Date Last Done Comments [...] Results Not on filedocumented in this encounter Visit Diagnoses Diagnosis Macromastia - Primary Hypertrophy of breast Chronic pain of both shoulders Pain in joint, shoulder region Chronic midline thoracic back pain Neck pain Cervicalgia documented in this encounter Insurance Payer Benefit Plan / Subscriber ID Effective Dates Phone Addre ss Type Group [facility] MEDICAID OF [id number] 2020-[facility] [phone] [address] Medicaid [place] [id number] [place] [id number] documented as of this encounter
--- OUTSIDE RECORDS SUMMARY | 2020-06-05 12:01 | XMS REPORT | Summary of Care ---
:1995 Author Organization [facility] - Health Address [address] [place] [address] Care Team Providers Name Role Phone Micheline Bryan MD Primary Care Provider Encounter Details Date Type Department Care Team Description 03/25/2020 Orders Only [facility] Doctor Unassigned, No [address] [facility] [place] [address] [address] [place] [address] Allergies Active Allergy Reactions Severity Noted Date Comments Penicillins Anaphylaxis High 04/30/2017 Shrimp Shortness of Breath, Swelling High 05/01/2017 documented as of this encounter (statuses as of 04/14/2020) Medications No known medicationsdocumented as of this encounter (statuses as of 04/14/2020) Active Problems Problem Noted Date Cellulitis of thigh 05/01/2017 Failure of outpatient treatment 04/30/2017 documented as of this encounter (statuses as of 04/14/2020) Immunizations Name Administration Dates Next Due Influenza [...] this topic documented as of this encounter Procedures Procedure Name Priority Date/Time Associated Diagnosis Comme nts REFERRAL- Routine 03/25/2020 12:01 AM CDT REQUEST/RESPONSE documented in this encounter Results Not on filedocumented in this encounter Insurance Payer Benefit Plan / Subscriber ID Effective Phone Address [facility] Group Dates [facility] [id number] 2019-Prese [address] Medic aid HE[facility] CHOICE - [place] [id number] 1 MANAGED MEDICAID [place], [place] MED[place]ID [phone] documented as of this encounter
--- OUTSIDE RECORDS SUMMARY | 2020-06-05 12:01 | XMS REPORT | Summary of Care ---
:1994 Author Organization [facility] Address [address] [place] [address] Care Team Providers Name Role Phone Micheline Bryan MD Primary Care Provider Reason for Visit Reason Comments Establish Care (Routine) Status Reason Specialty Diagnoses / Referred By Referred To Procedures Contact Contact New Request Plastic Surgery Diagnoses Hypertrophy of breast Estefania Torres Procedures CONSULT PLASTIC SURGERY L [address] [place] [address] Encounter Details Date Type Department Care Team Description 04/18/2020 Office Visit [facility] Plastic Pippa Morejon mastia (Primary Dx); Surgery- Fracisco Oseguera MD Chronic pain of both shoulders; [facility] Clinics [address] Chronic midline thoracic jveon k pain; [address], [address] Neck pain; [address] Floor [place], [place] Mild tobacco abuse [place], [place] [phone] Allergies Active Allergy Reactions Severity Noted Date Comments Penicillins Anaphylaxis High 04/30/2017 Shrimp Shortness of Breath, Swelling High 05/01/2017 documented as of this encounter (statuses as of 04/21/2020) Medications Medication Sig Dispensed Refills Start Date End Date Status PAROXETINE HCL ORAL Take by mouth. 0 Active documented as of this encounter (statuses as of 04/21/2020) Active Problems Problem Noted Date Cellulitis of thigh 05/01/2017 Failure of outpatient treatment 04/30/2017 documented as of this encounter (statuses as of 04/21/2020) Immunizations Name Administration Dates Next Due Influenza [...] CDT documented in this encounter Progress Notes Pippa Morejon MD - 04/18/2020 1:00 PM CDTAfter discussion with Dr. Montes I examined this patient. the patient presents for the first time concerned with the size of her breasts wearing a brassiere cup size DDD. She complains of upper back neck shoulder pain and shoulder grooving. She denies erythema intertrigo at this time. She would benefit from a bilateral breast reduction of approximately 700 g to take her to her desired full C cup. We discussed the surgical procedure, placement of scars and drains, need to stop her cigarette and vaping habits, activity limitation after surgery, medications that she would need to avoid perioperatively, medications that we would prescribed, return office visits either in person or by telehealth,return to full activity. The patient was strongly encouraged to stop both her tobacco and vaping andwas told that she would not have any surgery until this had occurred and that we would test her urine for nicotine. The patient signified her understanding and will come back to see me in 4 weeks. Her weight has been stable for more than 6 months. I agree with resident's note as written. Neymar Ambrose MD - 04/18/2020 1:00 PM CDT Visit [...] file Gets together: Not on file Attends mormon service: Not on file Active member of [...] 3.45 8045 3.50 8783 3.55 9589 3.60 53376 3.65 04554 3.70 31113 3.75 01547 3.80 72004 3.85 86519 3.90 72348 3.95 67941 4.00 68858 4.05 52976 4.10 15102 4.15 22462 4.20 69786 4.25 84638 4.30 39981 4.35 26469 4.40 64810 4.45 62973 4.50 15028 4.55 58164 4.60 52407 4.65 06349 4.70 95424 4.75 24119 4.80 75191 esvia Calvo RN - 04/18/2020 1:00 PM CDTBreast Examination and measurements of breast chaperoned by Lesvia Sunshine RN. documented in this encounter Plan of Treatment Date Type Specialty Care Team Description 05/23/2020 Office Visit Plastic Surgery Pippa Morejon MD [address] [place], [place] [address]D [address] [place] [address] Health Maintenance Due Date Last Done Comments VARICELLA VACCINES (1 of 2 - 2-dose childhood series) 1995 PNEUMOCOCCAL 0-64 YEARS COMBINED SERIES (1 of 1 - 02/08/2000 PPSV23) HPV VACCINES (1 - 2-dose series) 2005 Depression Screening 2006 DTaP,Tdap,and Td Vaccines (1 - Tdap) 2013 PAP SMEAR 2015 INFLUENZA VACCINE (#1) 2020 05/02/2017 documented as of this encounter Results Not on filedocumented in this encounter Visit Diagnoses Diagnosis Macromastia - Primary Hypertrophy of breast Chronic pain of both shoulders Pain in joint, shoulder region Chronic midline thoracic back pain Neck pain Cervicalgia Mild tobacco abuse documented in this encounter Insurance Payer Benefit Plan / Subscriber ID Effective Dates Phone Addre ss Type Group [facility] MEDICAID OF [id number] 2020-[place] [phone] [address] Medicaid [place] t [id number] [place] [address] documented as of this encounter
--- OUTSIDE RECORDS SUMMARY | 2020-06-05 12:01 | XMS REPORT | Summary of Care ---
:1994 Author Organization [facility] Address [address] [place] [address] Care Team Providers Name Role Phone Micheline Bryan MD Primary Care Provider Reason for Visit Reason Comments Establish Care (Routine) Status Reason Specialty Diagnoses / Referred By Referred To Procedures Contact Contact New Request Plastic Surgery Diagnoses Hypertrophy of breast Estefania Torres Procedures CONSULT PLASTIC SURGERY L [address] [place] [address] Encounter Details Date Type Department Care Team Description 04/18/2020 Office Visit [facility] Plastic Pippa Morejon mastia (Primary Dx); Surgery- Fracisco Oseguera MD Chronic pain of both shoulders; [facility] Clinics [address] Chronic midline thoracic jevon k pain; [address], [address] Neck pain 5[address] [place], [place] [phone] Allergies Active Allergy Reactions Severity Noted [...] file Gets together: Not on file Attends scientologist service: Not on file Active member of [...] 3.45 8045 3.50 8783 3.55 9589 3.60 12107 3.65 46938 3.70 77202 3.75 61022 3.80 40022 3.85 91198 3.90 30493 3.95 73743 4.00 52909 4.05 70425 4.10 77136 4.15 94472 4.20 06262 4.25 06998 4.30 82761 4.35 17610 4.40 70854 4.45 07672 4.50 75608 4.55 75906 4.60 35497 4.65 91959 4.70 02698 4.75 16414 4.80 81672 Lesvia foss RN - 04/18/2020 1:00 PM CDTBreast Examination and measurements of breast chaperoned by Lesvia Sunshine RN. documented in this encounter Plan of Treatment Date Type Specialty Care Team Description 05/23/2020 Office Visit Plastic Surgery Pippa Morejon MD [address] [place] [address] [address] [place] [address] Health Maintenance Due Date Last Done [...] Effective Dates Phone Addre ss Type Group [facility] MEDICAID OF [id number] 2020-[facility] [phone] [address] Medicaid [place] [id number] [place] [phone] documented as of this encounter
[2020-06-05 13:16] LABS: Urine Blood NEGATIVE (NEG); Urine Glucose NEGATIVE (NEG); Urine Protein TRACE (NEG); Urine Specific Gravity >1.030 (1.005-1.030); Urine pH 5.5 (5.0-7.0)
[2020-06-05 13:19] LABS: Barbiturates NEGATIVE (NEGATIVE); Benzodiazepines NEGATIVE (NEGATIVE); Cocaine NEGATIVE (NEGATIVE); METHAMPHETAM NEGATIVE (NEGATIVE); Methadone NEGATIVE (NEGATIVE); Opiates NEGATIVE (NEGATIVE); Phencyclidine NEGATIVE (NEGATIVE); THC Cannibis POSITIVE (NEGATIVE)
[2020-06-05 13:21] LABS: Basophils % 0.4 % (0-1.3); Hematocrit 39.3 % (36.0-45.0); MPV 8.9 fL (7.6-11.3); RBC Red Blood Cell Count 4.38 M/uL (3.86-4.86)
[2020-06-05 13:32] LABS: Protime INR 1.02
[2020-06-05 13:42] LABS: ALT/SGPT 17 U/L (12-78); AST/SGOT 19 U/L (15-37); Alkaline Phosphatase 61 U/L (45-117); BUN Blood Urea Nitrogen 14 mg/dL (7-18); Bicarbonate 27 mmol/L (21-32); Bilirubin Direct 0.1 mg/dL (0-0.2); Bilirubin Total 0.3 mg/dL (0.2-1.0); Glucose Level 84 mg/dL (74-106); Potassium 4.1 mmol/L (3.5-5.1); Protein, Total 7.7 g/dL (6.4-8.2); Sodium Level 141 mmol/L (136-145)
--- NOTE | 2020-06-05 16:43 | ER ---
Nurse's Notes [facility] Name: Guillermina Akins Age: 25 yrs Sex: Female : 1995 Arrival Date: 06/05/2020 Time: 12:04 Bed 13 Private MD: Diagnosis: Suicidal ideations;Depression Presentation: 06/05 12:33 Chief complaint: Patient states: "I just have a lot going on right now. to start my jd3 doctor quite and I am scared to see a new doctor. I lost my house. I had to give my kids to their dad and there is an ordeal over child support when I have been doing it by myself for 5 years already. My boyfriend that I have been with for about a year just disappeared for a couple of days and now he is leaving me. there is just a lot going on, I tried just taking my meds in different combinations, but that only made me feel worse. My mom is not supportive and thinks I should just kill myself. I bought a razor blade and had intended to cut myself with it, but I knew I needed help.". Coronavirus screen: At this time, the client does not indicate any symptoms associated with coronavirus-19. Ebola Screen: Patient negative for fever greater than or equal to 101.5 degrees Fahrenheit, and additional compatible Ebola Virus Disease symptoms. Initial Sepsis Screen: Does the patient meet any 2 criteria? No. Patient's initial sepsis screen is negative. Does the patient have a suspected source of infection? No. Patient's initial sepsis screen is negative. Risk Assessment: Do you want to hurt yourself or someone else? Patient reports no desire to harm self or others. Onset of symptoms was June 05, 2020. 12:33 Method Of Arrival: Ambulatory jd3 12:33 Acuity: YVON 2 jd3 LATH TIER: 12:42 LMP N/A - Irregular menses jd3 Historical: - Allergies: 12:41 PENICILLINS; jd3 - Home Meds: 12:41 Hydroxyzine Oral [Active]; jd3 - PMHx: 12:41 Asthma; Anxiety; jd3 - PSHx: 12:41 None; jd3 - Immunization history:: Adult Immunizations up to date. - Social history:: Smoking status: Patient reports use of chewing tobacco. Patient uses street drugs, marijuana. Screenin:22 Abuse screen: Denies threats or abuse. Denies injuries from another. Nutritional zb screening: No deficits noted. Tuberculosis screening: No symptoms or risk factors identified. Fall Risk None identified. Assessment: 13:21 General: Appears in no apparent distress. Behavior is cooperative, anxious, quiet. zb Pain: Denies pain. Neuro: Level of Consciousness is awake, alert, obeys commands, Oriented to person, place, time, situation. Cardiovascular: Capillary refill < 3 seconds in bilateral fingers Patient's skin is warm and dry. Respiratory: Airway is patent Respiratory effort is even, unlabored, Respiratory pattern is regular, symmetrical. GI: Abdomen is round non-distended. : No signs and/or symptoms were reported regarding the genitourinary system. EENT: No signs and/or symptoms were reported regarding the EENT system. Derm: Skin is intact, is healthy with good turgor. Musculoskeletal: Circulation, motion, and sensation intact. Capillary refill < 3 seconds, in bilateral fingers. Range of motion: intact in all extremities. 14:10 Reassessment: spoke to patient states that she took 4 of sertraline this morning time zb unknown, notified ECP, poison controlled called, told to monitor patient. . no s/s reported by patient at this time. 15:30 Reassessment: Patient appears in no apparent distress at this time. Patient and/or zb family updated on plan of care and expected duration. Pain level reassessed. Patient is alert, oriented x 3, equal unlabored respirations, skin warm/dry/pink. resting in bed at this time. 16:30 Reassessment: Patient and/or family updated on plan of care and expected duration. Pain jd3 level reassessed. Patient is alert, oriented x 3, equal unlabored respirations, skin warm/dry/pink. Joya MARTINEZ at [facility]. 17:30 Reassessment: Patient appears in no apparent distress at this time. Patient and/or zb family updated on plan of care and expected duration. Pain level reassessed. Patient is alert, oriented x 3, equal unlabored respirations, skin warm/dry/pink. sitter at bedside, pt eating food at the moment. 18:30 Reassessment: Patient appears in no apparent distress at this time. Patient and/or jd3 family updated on plan of care and expected duration. Pain level reassessed. Patient is alert, oriented x 3, equal unlabored respirations, skin warm/dry/pink. report given to EMS Patient denies pain at this time. Psych: 13:22 Subjective: Patient's mood is sad, Delusions are denied, Hallucinations are denied zb Having thoughts of suicide. Plan for suicide is to cut herself with razors. Objective: Patient is cooperative, Speech is normal, Affect is appropriate. Interventions: Removed personal items and placed in bag. Patient placed in hospital gown. Searched person for dangerous items. Urine collected and sent for urine drug test. Belonging list filled out. Suicide Risk Assessment: Sad Person Scale: Sex of patient: Female: Score 0 points. Age of patient: Score 1 point if patient 15-34. Depression: Score 1 point if signs of depression are present. Previous Attempt: Score 1 point if patient has previously attempted suicide. Substance Abuse: Score 1 point if patient abuses alcohol or drugs. Rational Thinking: Score 0 point if patient has rational thinking. Social Support: Score 1 point if social support is lacking and/or unavailable. Organized Plan: Score 1 point if patient had a plan in place. Relationship: Score 1 point if patient is , , , or for a single male Chronic Sickness: Score 0 point if patient does not have a chronic illness, debilitating, or severe disorder. TOTAL POINTS: If total points are 7-10, the proposed clinical action is to hospitalize or commit. Implement suicide precautions. Safety Checks: Personal items have been removed. Door is open. No visitors are present at this time. Patient uses Patient uses marijuana pt states "5 dabs ( wax)" pt states that she takes to much SSRI's. 18:44 Commitment: Patient will be a voluntary commitment. jd3 Vital Signs: 12:42 BP 143 / 94; Pulse 80; Resp 17 S; Temp 99.0(O); Pulse Ox 99% on R/A; Weight 83.91 kg jd3 (R); Height 5 ft. 2 in. (157.48 cm) (R); Pain 0/10; 15:57 BP 118 / 78; Pulse 77; Resp 16; Temp 98.2(TE); Pulse Ox 99% on R/A; mh5 12:42 Body Mass Index 33.84 (83.91 kg, 157.48 cm) jd3 ED Course: 12:04 Patient arrived in ED. ag5 12:17 Safety checks: Items removed: yes. Door open/sign placed on door: yes. Family/friend mh5 present: no. Sitter present: Yes. Patient has correct armband on for positive identification. Placed in gown. Bed in low position. Side rails up X 1. 12:40 Triage completed. jd3 12:40 Heidy Morales RN is Primary Nurse. zb 12:42 Ralph Morales MD is Attending Physician. kdr 12:43 Arm band placed on. jd3 13:13 Urine --Ancillary (enter results) Sent. mh5 13:13 Urine Dipstick--Ancillary (enter results) Sent. mh5 13:13 Acetaminophen Sent. mh5 13:13 Basic Metabolic Panel Sent. mh5 13:13 CBC with Diff Sent. mh5 13:13 ETOH Level Sent. mh5 13:13 Hepatic Function Sent. mh5 13:13 PT-INR Sent. mh5 13:14 Warm blanket given. Pulse ox on. NIBP on. 5 13:14 Ptt, Activated Sent. mh5 13:14 Salicylate Sent. mh5 13:14 Urine Drug Screen Sent. mh5 13:26 Urine collected: EKG done. mh5 15:53 contacted [facility], will send a screener to evaluate pt. bd 16:07 faxed chart to [facility]. bd 16:10 confirmed with Estefania at [facility] that chart was received. bd 16:31 pt accepted in transfer to [facility], admin approval given by Nicole Pope. bd 16:35 COVID swab sent to lab. mh5 16:37 Diet: Patient given a regular meal tray. mh5 17:19 Diet: Patient given a regular meal tray. mh5 18:16 Attending Physician role handed off by Ralph Morales MD rubén 18:16 Jeff Torres MD is Attending Physician. rubén 18:26 EMS TRANSFER. mh5 18:43 No provider procedures requiring assistance completed. IV discontinued, intact, jd3 bleeding controlled, No redness/swelling at site. Pressure dressing applied. Administered Medications: No medications were administered Outcome: 16:42 ER care complete, transfer ordered by . kdr 18:43 Transferred by ground EMS to other acute care facility: [facility]. Transfer jd3 form completed. X-rays sent w/ patient. 18:43 Condition: stable 18:43 Instructed on the need for transfer, Demonstrated understanding of instructions. 18:45 Patient left the ED. jd3 Signatures: Kristin Cleveland Corey, MD MD cha Rittger, Kevin, MD MD kdr Martinez, Maria [facility] Rafi Navarro RN RN Millie Thorpe Heidy Potts RN RN zb Corrections: (The following items were deleted from the chart) 13:16 13:14 Patient has correct armband on for positive identification. Placed in gown. Bed [facility] in low position. Side rails up X 1. [facility] 13:16 13:14 Warm blanket given. [place] [id number] 13:16 13:15 Safety checks: Items removed: yes. Door open/sign placed on door: yes. [facility] Family/friend present: no. Sitter present: Yes. [facility] 16:40 16:35 CORONAVIRUS+ drawn and sent. [facility] EDMS
--- NOTE | 2020-06-05 16:43 | EDPHYS ---
Physician Documentation [facility] Name: Guillermina Akins Age: 25 yrs Sex: Female : 1995 Arrival Date: 06/05/2020 Time: 12:04 Bed 13 Private MD: ED Physician Jeff Torres HPI: 06/05 15:58 This 25 yrs old Female presents to ER via Ambulatory with complaints of kdr Suicidal Ideation. 15:58 The patient presents to the emergency department with depression, over a relationship, kdr has had a recent break-up, Family/mother argument. Onset: The symptoms/episode began/occurred at an unknown time. Past psychiatric history: Prior diagnosis: depression, Anxiety. Associated signs and symptoms: The patient has no apparent associated signs or symptoms. Severity of symptoms: At their worst the symptoms were moderate severe just prior to arrival. The patient has experienced similar episodes in the past, a few times, She has been cutting on her legs prior to this . The patient has not recently seen a physician. DIRECTOR OF ADMISSIONS: 12:42 LMP N/A - Irregular menses jd3 Historical: - Allergies: 12:41 PENICILLINS; jd3 - Home Meds: 12:41 Hydroxyzine Oral [Active]; jd3 - PMHx: 12:41 Asthma; Anxiety; jd3 - PSHx: 12:41 None; jd3 - Immunization history:: Adult Immunizations up to date. - Social history:: Smoking status: Patient reports use of chewing tobacco. Patient uses street drugs, marijuana. ROS: 15:58 Constitutional: Negative for fever, chills, and weight loss, Eyes: Negative for injury, kdr pain, redness, and discharge, ENT: Negative for injury, pain, and discharge, Neck: Negative for injury, pain, and swelling, Cardiovascular: Negative for chest pain, palpitations, and edema, Respiratory: Negative for shortness of breath, cough, wheezing, and pleuritic chest pain, Abdomen/GI: Negative for abdominal pain, nausea, vomiting, diarrhea, and constipation, Back: Negative for injury and pain, : Negative for injury, bleeding, discharge, and swelling, MS/Extremity: Negative for injury and deformity, Skin: Negative for injury, rash, and discoloration, Neuro: Negative for headache, weakness, numbness, tingling, and seizure activity. Allergy/Immunology: Negative for hives, rash, and allergies, Endocrine: Negative for neck swelling, polydipsia, polyuria, polyphagia, and marked weight changes, Hematologic/Lymphatic: Negative for swollen nodes, abnormal bleeding, and unusual bruising. 15:58 Psych: Positive for anxiety, depression, suicidal ideation, Negative for drug dependence, alcohol dependence, auditory hallucinations, visual hallucinations, homicidal ideation, insomnia. Exam: 13:59 ECG was reviewed by the Attending Physician. kdr 15:58 Constitutional: This is a well developed, well nourished patient who is awake, alert, kdr and in no acute distress. Head/Face: Normocephalic, atraumatic. Eyes: Pupils equal round and reactive to light, extra-ocular motions intact. Lids and lashes normal. Conjunctiva and sclera are non-icteric and not injected. Cornea within normal limits. Periorbital areas with no swelling, redness, or edema. Neck: Trachea midline, no thyromegaly or masses palpated, and no cervical lymphadenopathy. Supple, full range of motion without nuchal rigidity, or vertebral point tenderness. No Meningismus. Chest/axilla: Normal chest wall appearance and motion. Nontender with no deformity. No lesions are appreciated. Cardiovascular: Regular rate and rhythm with a normal S1 and S2. No gallops, murmurs, or rubs. Normal PMI, no JVD. No pulse deficits. Respiratory: Lungs have equal breath sounds bilaterally, clear to auscultation and percussion. No rales, rhonchi or wheezes noted. No increased work of breathing, no retractions or nasal flaring. Abdomen/GI: Soft, non-tender, with normal bowel sounds. No distension or tympany. No guarding or rebound. No evidence of tenderness throughout. Back: No spinal tenderness. No costovertebral tenderness. Full range of motion. Skin: Warm, dry with normal turgor. Normal color with no rashes, no lesions, and no evidence of cellulitis. MS/ Extremity: Pulses equal, no cyanosis. Neurovascular intact. Full, normal range of motion. Neuro: Awake and alert, GCS 15, oriented to person, place, time, and situation. Cranial nerves II-XII grossly intact. Motor strength 5/5 in all extremities. Sensory grossly intact. Cerebellar exam normal. Normal gait. 15:58 Psych: Behavior/mood is pleasant, cooperative, suicidal, Affect is flat, Oriented to Patient having thoughts of suicide. Plan for suicide is The patient bought a razor this morning for self harm. States she would not be safe if going home Vital Signs: 12:42 BP 143 / 94; Pulse 80; Resp 17 S; Temp 99.0(O); Pulse Ox 99% on R/A; Weight 83.91 kg jd3 (R); Height 5 ft. 2 in. (157.48 cm) (R); Pain 0/10; 15:57 BP 118 / 78; Pulse 77; Resp 16; Temp 98.2(TE); Pulse Ox 99% on R/A; mh5 12:42 Body Mass Index 33.84 (83.91 kg, 157.48 cm) jd3 MDM: 16:42 Patient medically screened. kdr 16:43 Data reviewed: vital signs, nurses notes, lab test result(s). Counseling: I had a kdr detailed discussion with the patient and/or guardian regarding: the historical points, exam findings, and any diagnostic results supporting the discharge/admit diagnosis, lab results, the need to transfer to another facility. ED course: The patient was stable in the ED. 06/05 12:42 Order name: Acetaminophen; Complete Time: 13:57 kdr 06/05 12:42 Order name: Basic Metabolic Panel; Complete Time: 13:57 kdr 06/05 12:42 Order name: CBC with Diff; Complete Time: 13:57 kdr 06/05 12:42 Order name: ETOH Level; Complete Time: 13:57 kdr 06/05 12:42 Order name: Hepatic Function; Complete Time: 13:57 kdr 06/05 12:42 Order name: PT-INR; Complete Time: 13:57 kdr 06/05 12:42 Order name: Ptt, Activated; Complete Time: 13:57 kdr 06/05 12:42 Order name: Salicylate; Complete Time: 13:57 kdr 06/05 12:42 Order name: Urine Drug Screen; Complete Time: 13:57 kdr 06/05 12:59 Order name: Urine Dipstick--Ancillary (enter results); Complete Time: 13:57 06/05 12:59 Order name: Urine --Ancillary (enter results); Complete Time: 13:57 06/05 13:40 Order name: Diet Finger Food; Complete Time: 13:40 mh5 06/05 17:40 Order name: SARS-COV-2 RT PCR EDMS 06/05 12:42 Order name: IV Saline Lock; Complete Time: 13:33 kdr 06/05 12:42 Order name: Labs collected and sent; Complete Time: 13:14 kdr 06/05 12:42 Order name: Urine Dipstick-Ancillary (obtain specimen); Complete Time: 13:14 kdr EC:59 Rate is 64 beats/min. Rhythm is regular, Sinus Rhythm with No ectopy. QRS [place] is kdr Normal. IA interval is normal. QRS interval is normal. Clinical impression: NSR w/ Non-specific ST/T Changes. Administered Medications: No medications were administered Disposition: 06/05/20 16:42 Transfer ordered to Psych Facility. Diagnosis are Suicidal ideations, Depression. - Reason for transfer: Higher level of care. - Accepting physician is Dr. Segura. - Condition is Fair. - Problem is an acute exacerbation. - Symptoms have improved. Signatures: Dispatcher [employer] [facility] Ralph Morales MD MD kdr Rafi Navarro RN RN jd3 Corrections: (The following items were deleted from the chart) 16:40 15:51 CORONAVIRUS+MR.LAB.BRZ ordered. [facility] EDTX 18:45 16:42 06/05/2020 16:42 Transfer ordered to Psych Facility. Diagnosis is Suicidal jd3 ideations; Depression. Reason for transfer: Higher level of care. Accepting physician is Dr. Segura. Condition is Fair. Problem is an acute exacerbation. Symptoms have improved. kdr
[2020-06-06 12:58] VITALS: O2SAT 99
[2020-06-06 13:03] VITALS: BP 118/78; TEMP 98.2
== END 2020-06-05 18:45 ==
LOC: ER 11:58
DX: F32.9 Major depressive disorder, single episode, unspecified (principal); F41.9 Anxiety disorder, unspecified; Z20.828 Contact with and (suspected) exposure to other viral communicable diseases; Z88.0 Allergy status to penicillin; F17.220 Nicotine dependence, chewing tobacco, uncomplicated
CPT/HCPCS: 85025; 80048; 36415; 80320; 80329 ×2; 81025; 85610; 80076; 80307 ×8; 85730; 81003; 99285; U0003; 93005

== ENCOUNTER 2020-07-11 00:18 | Emergency (ER) | payer OTHER ==
--- OUTSIDE RECORDS SUMMARY | 2020-07-11 00:21 | XMS REPORT | Continuity of Care Document ---
:1995 Author Organization [facility] t Address [address] [place] [address] [address] [place] [address] Care Team Providers Name Role Phone Oumar [...] 2020-04-18 2020-04-21 Office ENRRIQUE Morejon [id number] 13:02:53 08:21:27 Visit [facility] [id number] [facility] [id number] [id number] Results This patient has no known results.
--- NOTE | 2020-07-11 01:20 | ER ---
Nurse's Notes [facility] Name: Guillermina Akins Age: 25 yrs Sex: Female : 1995 Arrival Date: 07/11/2020 Time: 00:21 Bed 4 Private MD: Pepito Zaldivar Diagnosis: Acute upper respiratory infection, unspecified;Bronchitis, not specified as acute or chronic;Tobacco abuse counseling;Tobacco use;Cough Presentation: 07/11 00:22 Acuity: YVON 4 sg 00:22 Chief complaint: Patient states: I have had a dry cough for 1-2 days now, worsening sg this evening, pt states body aches as well. No other symptoms reported for triage at this time. Coronavirus screen: Client denies travel out of the [place] in the last 14 days. cough unrelated to allergies, muscle pain, Client presents with at least one sign or symptom that may indicate coronavirus-19. Standard/surgical mask placed on the client. Provider contacted for isolation considerations. Ebola Screen: Patient negative for fever greater than or equal to 101.5 degrees Fahrenheit, and additional compatible Ebola Virus Disease symptoms Patient denies exposure to infectious person. Patient denies travel to an Ebola-affected area in the 21 days before illness onset. No symptoms or risks identified at this time. Initial Sepsis Screen: Does the patient meet any 2 criteria? No. Patient's initial sepsis screen is negative. Does the patient have a suspected source of infection? No. Patient's initial sepsis screen is negative. Risk Assessment: Do you want to hurt yourself or someone else? Patient reports no desire to harm self or others. Onset of symptoms was July 11, 2020. Care prior to arrival: None. Mechanism of Injury: No Mechanism of Injury. Transition of care: patient was not received from another setting of care. 00:22 Method Of Arrival: Ambulatory sg 00:35 Ebola Screen: No symptoms or risks identified at this time. ea Historical: - Allergies: 00:23 PENICILLINS; sg - PMHx: 00:23 Anxiety; Asthma; sg - PSHx: 00:23 None; sg - Immunization history:: Adult Immunizations up to date. - Social history:: Smoking status: Patient denies any tobacco usage or history of. - Family history:: not pertinent. Screenin:35 Abuse screen: Denies threats or abuse. Nutritional screening: No deficits noted. ea Tuberculosis screening: No symptoms or risk factors identified. Fall Risk None identified. Assessment: 01:10 General: Appears in no apparent distress. Behavior is calm, cooperative, appropriate ea for age. Pain: Denies pain. Neuro: Level of Consciousness is awake, alert, obeys commands, Oriented to person, place, time, situation. Cardiovascular: Patient's skin is warm and dry. Respiratory: Airway is patent Respiratory effort is even, unlabored, Respiratory pattern is regular, symmetrical. Respiratory: Parent/caregiver reports the patient having cough that is non-productive, dry. Derm: Skin is pink, warm \T\ dry. 01:48 Reassessment: Patient and/or family updated on plan of care and expected duration. Pain ea level reassessed. Patient is alert, oriented x 3, equal unlabored respirations, skin warm/dry/pink. Awaiting covid results. 02:25 Reassessment: Patient and/or family updated on plan of care and expected duration. Pain ea level reassessed. Patient is alert, oriented x 3, equal unlabored respirations, skin warm/dry/pink. Discharge instruction given to patient, verbalized the understanding of instruction. Pt left ED ambulatory tolerating well. Vital Signs: 00:22 BP 142 / 70; Pulse 77; Resp 18; Temp 98.2; Pulse Ox 100% on R/A; sg ED Course: 00:21 Patient arrived in ED. es 00:21 Pepito Zaldivar DO is Private Physician. es 00:22 Triage completed. sg 00:23 Arm band placed on. sg 00:35 Licha Shore RN is Primary Nurse. ea 00:35 Patient has correct armband on for positive identification. Bed in low position. Call ea light in reach. Side rails up X 1. 00:39 Jeff Torres MD is Attending Physician. rubén 01:17 No provider procedures requiring assistance completed. COVID swab sent to lab. Patient mg2 did not have IV access during this emergency room visit. 01:17 Flu and/or RSV swab sent to lab. mg2 01:19 Pepito Zaldivar DO is Referral Physician. rubén Administered Medications: 01:21 Drug: predniSONE 60 mg Route: PO; ea 01:23 Follow up: Response: Medication administered at discharge. ea 01:21 Drug: Zithromax 500 mg Route: PO; ea 01:22 Follow up: Response: Medication administered at discharge. ea 01:21 Drug: Albuterol HFA Inhaler 4 puffs Route: Inhalation; ea 01:22 Follow up: Response: Medication administered at discharge. ea Outcome: 01:20 Discharge ordered by . rubén 02:24 Discharged to home ambulatory, with family. elyse 02:24 Condition: stable 02:24 Discharge instructions given to patient, Instructed on discharge instructions, follow up and referral plans. medication usage, Demonstrated understanding of instructions, follow-up care, medications, Prescriptions given X 4. 02:25 Patient left the ED. ea Signatures: Pantera Lu RN Jeff Guerrier MD MD cha Salyer, Edna es Antunez, Elena RN David Sandy ea RN RN mg2
--- NOTE | 2020-07-11 01:20 | EDPHYS ---
Physician Documentation [facility] Name: Guillermina Akins Age: 25 yrs Sex: Female : 1995 Arrival Date: 07/11/2020 Time: 00:21 Bed 4 Private MD: [facility] ED Physician Jeff Torres HPI: 07/11 01:13 This 25 yrs old Female presents to ER via Ambulatory with complaints of rubén Non-Productive Cough. 01:13 The patient or guardian reports airway noise, cough. Onset: The symptoms/episode rubén began/occurred 3 day(s) ago. Severity of symptoms: At their worst the symptoms were mild, moderate, in the emergency department the symptoms are unchanged. Modifying factors: The symptoms are alleviated by nothing, the symptoms are aggravated by smoke. Associated signs and symptoms: Pertinent positives: rhinorrhea, sore throat. The patient has experienced similar episodes in the past, several times. Historical: - Allergies: 00:23 PENICILLINS; sg - PMHx: 00:23 Anxiety; Asthma; sg - PSHx: 00:23 None; sg - Immunization history:: Adult Immunizations up to date. - Social history:: Smoking status: Patient denies any tobacco usage or history of. - Family history:: not pertinent. ROS: 01:13 Constitutional: Negative for fever, chills, and weight loss, Eyes: Negative for injury, rubén pain, redness, and discharge, ENT: Negative for injury, pain, and discharge, Neck: Negative for injury, pain, and swelling, Cardiovascular: Negative for chest pain, palpitations, and edema, Abdomen/GI: Negative for abdominal pain, nausea, vomiting, diarrhea, and constipation, Back: Negative for injury and pain, : Negative for injury, bleeding, discharge, and swelling, MS/Extremity: Negative for injury and deformity, Skin: Negative for injury, rash, and discoloration, Neuro: Negative for headache, weakness, numbness, tingling, and seizure, Psych: Negative for depression, anxiety, suicide ideation, homicidal ideation, and hallucinations, Allergy/Immunology: Negative for hives, rash, and allergies, Endocrine: Negative for neck swelling, polydipsia, polyuria, polyphagia, and marked weight changes, Hematologic/Lymphatic: Negative for swollen nodes, abnormal bleeding, and unusual bruising. 01:13 Respiratory: Positive for cough, wheezing, inspiratory, expiratory, of the right posterior upper lobe and right posterior middle lobe. Exam: 01:13 Constitutional: This is a well developed, well nourished patient who is awake, alert, rubén and in no acute distress. Head/Face: Normocephalic, atraumatic. Eyes: Pupils equal round and reactive to light, extra-ocular motions intact. Lids and lashes normal. Conjunctiva and sclera are non-icteric and not injected. Cornea within normal limits. Periorbital areas with no swelling, redness, or edema. ENT: Nares patent. No nasal discharge, no septal abnormalities noted. Tympanic membranes are normal and external auditory canals are clear. Oropharynx with no redness, swelling, or masses, exudates, or evidence of obstruction, uvula midline. Mucous membranes moist. Neck: Trachea midline, no thyromegaly or masses palpated, and no cervical lymphadenopathy. Supple, full range of motion without nuchal rigidity, or vertebral point tenderness. No Meningismus. Chest/axilla: Normal chest wall appearance and motion. Nontender with no deformity. No lesions are appreciated. Cardiovascular: Regular rate and rhythm with a normal S1 and S2. No gallops, murmurs, or rubs. Normal PMI, no JVD. No pulse deficits. Abdomen/GI: Soft, non-tender, with normal bowel sounds. No distension or tympany. No guarding or rebound. No evidence of tenderness throughout. Back: No spinal tenderness. No costovertebral tenderness. Full range of motion. Skin: Warm, dry with normal turgor. Normal color with no rashes, no lesions, and no evidence of cellulitis. MS/ Extremity: Pulses equal, no cyanosis. Neurovascular intact. Full, normal range of motion. Neuro: Awake and alert, GCS 15, oriented to person, place, time, and situation. Cranial nerves II-XII grossly intact. Motor strength 5/5 in all extremities. Sensory grossly intact. Cerebellar exam normal. Normal gait. Psych: Awake, alert, with orientation to person, place and time. Behavior, mood, and affect are within normal limits. 01:13 Respiratory: the patient does not display signs of respiratory distress, Respirations: normal, no acute changes, Breath sounds: bronchial sounds, decreased breath sounds, rhonchi, that are mild, are scattered, wheezing: expiratory that is mild, is heard in the right posterior upper lobe and right posterior middle lobe. Vital Signs: 00:22 BP 142 / 70; Pulse 77; Resp 18; Temp 98.2; Pulse Ox 100% on R/A; sg MDM: 00:39 Patient medically screened. [facility] 01:13 Differential Diagnosis: Bronchitis Influenza Upper Respiratory Infection Pharyngitis rubén Asthma Exacerbation Pneumonia. Data reviewed: vital signs, nurses notes, lab test result(s), radiologic studies, plain films. Data interpreted: nuclear monitoring technician: rate is 77 beats/min, rhythm is regular, Pulse oximetry: on room air. Test interpretation: by ED physician or midlevel provider: plain radiologic studies. 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 07/11 00:50 Order name: Flu [facility] 07/11 00:50 Order name: COVID-19 [facility] 07/11 01:06 Order name: Influenza Screen (A [facility] 07/11 01:06 Order name: CORONAVIRUS [facility] 07/11 01:12 Order name: Urine Dipstick--Ancillary (enter results) [facility] 07/11 01:12 Order name: Urine --Ancillary (enter results) [facility] 07/11 00:50 Order name: Chest Single View XRAY [facility] 07/11 00:50 Order name: Urine Dipstick-Ancillary (obtain specimen); Complete Time: 01: [facility] 07/11 00:50 Order name: Urine Test (obtain specimen); Complete Time: : [facility] 07/11 01:53 Order name: Urine --Ancillary; Complete Time: 02:05 [facility] 07/11 01:53 Order name: Urine Dipstick-Ancillary; Complete Time: 02:05 [facility] Administered Medications: : Drug: predniSONE 60 mg Route: PO; ea Follow up: Response: Medication administered at discharge. ea : Drug: Zithromax 500 mg Route: PO; ea Follow up: Response: Medication administered at discharge. ea : Drug: Albuterol HFA Inhaler 4 puffs Route: Inhalation; ea 01:22 Follow up: Response: Medication administered at discharge. ea Disposition: 07/11/20 01:20 Discharged to Home. Impression: Acute upper respiratory infection, unspecified, Bronchitis, not specified as acute or chronic, Tobacco abuse counseling, Tobacco use, Cough. - Condition is Stable. - Discharge Instructions: Acute Bronchitis, Adult, Steps to Quit Smoking, Smoking Hazards, Upper Respiratory Infection, Adult, Cool Mist Vaporizer, Cough, Adult, [id number]. - Prescriptions for Bromfed DM 2- 30-10 mg/5 mL Oral syrup - take 10 milliliter by ORAL route every 6 hours; 180 milliliter. Prednisone 20 mg Oral Tablet - take 2 tablet by ORAL route once daily for 5 days; 10 tablet. Zithromax 500 mg Oral Tablet - take 1 tablet by ORAL route once daily for 4 days; 4 tablet. Albuterol Sulfate 90 mcg/actuation - inhale 1-2 puff by INHALATION route every 4-6 hours; 1 Inhaler. - Medication Reconciliation Form, Thank You Letter, Antibiotic Education, Prescription Opioid Use, Work release form form. - Follow up: Pepito Zaldivar DO; When: 2 - 3 days; Reason: Recheck today's complaints, Continuance of care, Re-evaluation by your physician. - Problem is new. - Symptoms have improved. Signatures: Dispatcher [employer] Cornelius RN RN sg Anderson, Corey, MD MD cha Antunez, Elena, RN RN ea Corrections: (The following items were deleted from the chart) 02:25 01:20 07/11/2020 01:20 Discharged to Home. Impression: Acute upper respiratory ea infection, unspecified; Bronchitis, not specified as acute or chronic; Tobacco abuse counseling; Tobacco use; Cough. Condition is Stable. Forms are Medication Reconciliation Form, Thank You Letter, Antibiotic Education, Prescription Opioid Use. Follow up: Pepito Zaldivar; When: 2 - 3 days; Reason: Recheck today's complaints, Continuance of care, Re-evaluation by your physician. Problem is new. Symptoms have improved. rubén
[2020-07-11] MEDS ORDERED: AZITHROMYCIN 250 MG TAB ONE (01:32)
[2020-07-11] MEDS ORDERED: ALBUTEROL INHALER 60 PUFF/8 GM IH ONE (01:33)
[2020-07-11] MEDS ORDERED: predniSONE 20 MG TAB ONE (01:33)
[2020-07-11 01:53] LABS: Urine Blood 1+ (NEG); Urine Glucose NEGATIVE (NEG); Urine Protein NEGATIVE (NEG); Urine Specific Gravity >1.030 (1.005-1.030); Urine pH 6.5 (5.0-7.0)
[2020-07-11 02:26] LABS: SARS-COV-2 RT PCR NEGATIVE (NEGATIVE)
[2020-07-11 02:36] VITALS: BP 142/70; TEMP 98.2; O2SAT 100
--- NOTE | 2020-07-11 08:58 | RAD REPORT ---
EXAM DESCRIPTION: RAD - Chest Single View - 07/11/2020 1:13 am CLINICAL HISTORY: COUGH Chest pain. COMPARISON: Chest Single View dated 05/09/2019; Chest Pa And Lat (2 Views) dated 05/04/2019 FINDINGS: Portable technique limits examination quality. Interstitial lung markings are mildly prominent suggesting viral pneumonitis or asthma. The heart is normal in size. No displaced fractures.
== END 2020-07-11 02:25 | disposition home or self-care (01) ==
LOC: ER 00:18
DX: J40 Bronchitis, not specified as acute or chronic (principal); Z20.822 Contact with and (suspected) exposure to COVID-19; J06.9 Acute upper respiratory infection, unspecified; Z72.0 Tobacco use; Z71.6 Tobacco abuse counseling; Z88.0 Allergy status to penicillin
CPT/HCPCS: 81025; 81003; 0240U; 71045; 99284; J7512

== ENCOUNTER 2022-06-15 01:23 | Emergency (ER) | payer OTHER ==
--- OUTSIDE RECORDS SUMMARY | 2022-06-15 01:28 | XMS REPORT | Continuity of Care Document ---
:1995 Author Organization [facility] t Address [address] [place] [address] Care Team Providers Name Role Phone Pepito Zaldivar Attending Clinician Unavailable Estefania Torres Attending Clinician Unavailable IPPPA BASS Attending Clinician Unavailable Janett Fong Attending Clinician JANETT ROTHMAN Attending Clinician Unavailable London Quevedo MD Attending Clinician Pippa Bass MD Attending Clinician Doctor Unassigned, [place] Attending Clinician Unavailable Estefania Torres Attending Clinician Mark Barraza MD Attending Clinician MARK BARRAZA Attending Clinician Unavailable PIPPA BASS Admitting Clinician Unavailable Pippa Bass MD Admitting Clinician Payers Payer Name Policy Type Policy Number Effective Date Expiration Date [facility] [id number] 2020 CHOICE MEDICAID 00:00:00 [facility] [id number] 2020 00:00:00 MEDICAID [facility] [id number] 2020 00:00:00 Problems Condition Condition Condition Status Onset Resolution Last Treating Co mments Source Name Details Category Date Date Treatment Clinician Date Obesity Obesity Disease Active Univers (BMI (BMI 4-13 ity of 30-39.9) 30-39.9) 00:00: [address] Branch Macromasti Macromasti Disease Active Overview : Univers a a 3-23 Added ity of 00:00: automatic [place] 00 ally from Medical request Branch for surgery [id number] Cellulitis Cellulitis Disease Active 2016-06 U nivers of thigh of thigh 07-01 ity of 00:00: [place] 00 Medical Branch Failure of Failure of Disease Active 2016-06 U nivers outpatient outpatient 06-30 [place] Allergies, Adverse Reactions, Alerts Allergy Allergy Status Severity Reaction(s) Onset Inactive Treating Comm ents Source Name Type Date Date Clinician SHRIMP DRUG Active High SOB 2016-06 Univers INGREDI 07-01 ity of 00:00: [place] 00 Medical Branch Shrimp Drug Active Swelling 2016-06 Univers Allergy 07-01 ity of 00:00: [place] 00 Medical Branch PENICILL Drug Active High Anaphylaxis 2016-06 Uni vers INS Class 06-30 ity of 00:00: [place] 00 Medical Branch Penicill Propensi Active Anaphylaxis 2016-06 U nivers ins ty to 06-30 ity of adverse 00:00: [place] reaction 00 Medical s [place] Social History Social Habit Start Date Stop Date Quantity Comments Source Exposure to Not sure [facility] SARS-CoV-2 (event) Medica l Branch Tobacco use and 2020-10-28 2020-10-28 Never used [facility] exposure 00:00:00 00:00:00 [facility] History of tobacco 2020-07-21 Smoker [facility] use 00:00:00 [facility] Sex Assigned At [birth year] [facility] 00:00:00 00:00:00 [facility] [place] Smoking Status Start Date Stop Date Source Former smoker 2020-10-28 00:00:00 2020-10-28 00:00:00 [facility] Medical [place] Current every day 2020-04-18 00:00:00 [facility] smoker [facility] Medications Ordered Filled Start Stop Current Ordering Indication Dosage Frequency Signature Comments Components Source Medication Medication Date Date Medication? Clinician (SIG) Name Name PAROXETINE 2020- No Take by Uni vers HCL ORAL 5-11 05-11 mouth. ity of 14:19: 00:00 [place] 46 :00 Medical Branch PAROXETINE 2020- No Take by Uni vers HCL ORAL 5-11 05-11 mouth. ity of 14:19: 00:00 [place] 46 :00 Medical Branch QUEtiapine Yes 50mg Take 50 mg U nivers (SEROQUEL) 4-15 by mouth ity o f 25 mg 16:45: every [place] tablet 19 evening. Medical Branch QUEtiapine Yes 50mg Take 50 mg U nivers (SEROQUEL) 4-15 by mouth ity o f 25 mg 16:45: every [place] tablet 19 evening. Medical Branch QUEtiapine Yes 50mg Take 50 mg U nivers (SEROQUEL) 4-15 by mouth ity o f 25 mg 16:45: every [place] tablet 19 evening. Medical Branch QUEtiapine Yes 50mg Take 50 mg U nivers (SEROQUEL) 4-15 by mouth ity o f 25 mg 16:45: every [place] tablet 19 evening. Medical Branch QUEtiapine Yes 50mg Take 50 mg U nivers (SEROQUEL) 4-15 by mouth ity o f 25 mg 16:45: every [place] tablet 19 evening. Medical Branch QUEtiapine Yes 50mg Take 50 mg U nivers (SEROQUEL) 4-15 by mouth ity o f 25 mg 16:45: every [place] tablet 19 evening. Medical Branch QUEtiapine Yes 50mg Take 50 mg U nivers (SEROQUEL) 4-15 by mouth ity o f 25 mg 16:45: every [place] tablet 19 evening. Medical Branch QUEtiapine Yes 50mg Take 50 mg U nivers (SEROQUEL) 4-15 by mouth ity o f 25 mg 16:45: every [place] tablet 19 evening. Medical Branch QUEtiapine Yes 50mg Take 50 mg U nivers (SEROQUEL) 4-15 by mouth ity o f 25 mg 16:45: every [place] tablet 19 evening. Medical Branch QUEtiapine Yes 50mg Take 50 mg U nivers (SEROQUEL) 4-15 by mouth ity o f 25 mg 16:45: every [place] tablet 19 evening. Medical Branch QUEtiapine Yes 50mg Take 50 mg U nivers (SEROQUEL) 4-15 by mouth ity o f 25 mg 16:45: every [place] tablet 19 evening. Medical Branch QUEtiapine 2021-0 Yes 50mg Take 50 mg U nivers (SEROQUEL) 4-15 by mouth ity o f 25 mg 16:45: every [place] tablet 19 evening. Medical Branch QUEtiapine Yes 50mg Take 50 mg U nivers (SEROQUEL) 4-15 by mouth ity o f 25 mg 16:45: every [place] tablet 19 evening. Medical Branch traMADoL 50 2020- No 4647 50mg Take 1 Uni vers mg tablet -15 -23 tablet by ity of 00:00: 04:59 mouth [place] 00 :00 every 6 Medical (six) Branch hours as needed for Pain (scale 7-10) for up to 7 days. Indication s: acute pain traMADoL 50 2020-2020- No 4647 50mg Take 1 Uni vers mg tablet -15 -23 tablet by ity of 00:00: 04:59 mouth [place] 00 :00 every 6 Medical (six) Branch hours as needed for Pain (scale 7-10) for up to 7 days. Indication s: acute pain traMADoL 50 2020- No 4647 50mg Take 1 Uni vers mg tablet 10-02-23 tablet by ity of 00:00: 04:59 mouth [place] 00 :00 every 6 Medical (six) Branch hours as needed for Pain (scale 7-10) for up to 7 days. Indication s: acute pain traMADoL 50 2020-2020- No 4647 50mg Take 1 Uni vers mg tablet -15 -23 tablet by ity of 00:00: 04:59 mouth [place] 00 :00 every 6 Medical (six) Branch hours as needed for Pain (scale 7-10) for up to 7 days. Indication s: acute pain PAROXETINE Yes Take by Univ ers HCL ORAL 4-14 mouth. ity of 21:51: [place] Medical Branch QUEtiapine Yes 50mg Take 50 mg U nivers (SEROQUEL) 4-14 by mouth ity o f 25 mg 21:51: every [place] tablet 22 evening. Medical Branch PAROXETINE Yes Take by Univ ers HCL ORAL 4-14 mouth. ity of 21:51: [place] [facility] PAROXETINE 0 Yes Take by Univ ers HCL ORAL 4-14 mouth. ity of 21:51: [address] PAROXETINE Yes Take by Univ ers HCL ORAL 4-14 mouth. ity of 21:51: [address] PAROXETINE Yes Take by Univ ers HCL ORAL 4-14 mouth. ity of 21:51: [address] PAROXETINE Yes Take by Univ ers HCL ORAL 4-14 mouth. ity of 21:51: [address] PAROXETINE Yes Take by Univ ers HCL ORAL 4-14 mouth. ity of 21:51: [address] PAROXETINE Yes Take by Univ ers HCL ORAL 4-14 mouth. ity of 21:51: [address] PAROXETINE Yes Take by Univ ers HCL ORAL 4-14 mouth. ity of 21:51: [address] PAROXETINE Yes Take by Univ ers HCL ORAL 4-14 mouth. ity of 21:51: [address] PAROXETINE Yes Take by Univ ers HCL ORAL 4-14 mouth. ity of 21:51: [address] PAROXETINE Yes Take by Univ ers HCL ORAL 4-14 mouth. ity of 21:51: [address] HYDROcodone 2020- No 1{tbl} 1 tablet, Univers -acetaminop 4-14 10-01 Oral, ity of hen (NORCO 19:45: 21:12 ONCE, 1 [place] 5) 5-325 mg 00 :00 dose, Tue Med ical tablet 10/01/20 at Branc h tablet 1445, Routine, PACU HYDROcodone 2020- No 1{tbl} 1 tablet, Univers -acetaminop 4-14 10-01 Oral, ity of hen (NORCO 19:45: 21:12 ONCE, 1 [place] 5) 5-325 mg 00 :00 dose, Tue Med ical tablet 10/01/20 at Branc h tablet 1445, Routine, PACU HYDROmorpho Yes .2mg 0.2 mg, Uni vers ne 10-01 Slow IV ity of (DILAUDID) 19:44: Push, [place] injection 31 Q5MIN PRN, Medi josemanuel 0.2 mg 10 doses, Branch Starting Tue10/01/20 at 1444, Until Discontinu ed, Routine, Pain (scale 7-10), PACU
Us e approved by (Faculty): PACU USE -ANESTHESI A SERVICE-HY DROMORPHON E INJECTIONS ondansetron Yes 4mg 4 mg, Slow Univers (ZOFRAN 414 IV Push, ity of (PF)) 19:44: PRN, 1 [place] injection 4 31 dose, Medical mg Starting Branch Tue10/01/20 at 1444, Until Discontinu ed, Routine, Nausea and Vomiting (N/V), PACU FENTanyl PF 2020- No 25ug 25 mcg, Un cisco (SUBLIMAZE 10-01 Slow IV ity o f (PF)) 19:44: 21:14 Push, [place] injection 31 :00 Q5MIN PRN, Medi josemanuel 25 mcg 4 doses, Branch Starting Tue10/01/20 at 1444, Until Discontinu ed, Routine, Pain (scale 4-6), PACU HYDROmorpho 2020- No .2mg 0.2 mg, Un cisco ne 10-01 Slow IV ity of (DILAUDID) 19:44: 23:56 Push, [place] injection 31 :25 Q5MIN PRN, Medi josemanuel 0.2 mg 10 doses, Branch Starting Tue10/01/20 at 1444, Until Tue10/01/20 at 1856, Routine, Pain (scale 7-10), PACU
Us e approved by (Faculty): PACU USE -ANESTHESI A SERVICE-HY DROMORPHON E INJECTIONS FENTanyl PF 2020- No 25ug 25 mcg, Un cisco (SUBLIMAZE 10-01 Slow IV ity o f (PF)) 19:44: 21:14 Push, [place] injection 31 :00 Q5MIN PRN, Medi josemanuel 25 mcg 4 doses, Branch Starting Tue10/01/20 at 1444, Until Discontinu ed, Routine, Pain (scale 4-6), PACU ondansetron 2020- No 4mg 4 mg, Slow Univers (ZOFRAN 10-01 IV Push, ity of (PF)) 19:44: 23:56 PRN, 1 [place] injection 4 31 :25 dose, Medical mg Starting Branch Tue10/01/20 at 1444, Until Tue10/01/20 at 1856, Routine, Nausea and Vomiting (N/V), PACU gentian Yes PRN, Univers yamel 1 % 10-01 Starting ity o f solution 15:07: Tue10/01/20 at [place] [address], Branch Until Discontinu ed, Routine, Intra-op gentian 2020- No PRN, Univers yamel 1 % 10-01 Starting ity of solution 15:07: 23:56 Tue 00 :25 10/01/20 at [place] [address], Branch Until Tue10/01/20 at 1856, Routine, Intra-op bupivacaine Yes PRN, Univer s (preserv 10-01 Starting ity of free) 0.5% 15:06: Tue [facility] 1006, Branch % (5 mg/mL) Intra-op 30 mL, bupivacaine liposome (PF) (EXPAREL (PF)) 1.3 % (13.3 mg/mL) 266 mg, NaCl 0.9% (NS) 100 mL bupivacaine 2020- No PRN, Unive rs (preserv 10-01 Starting ity of free) 0.5% 15:06: 23:56 [facility] (SENSORCAIN 00 :25 10/01/20 at [facility]) 0.5 1006, Branch % (5 mg/mL) Intra-op 30 mL, bupivacaine liposome (PF) (EXPAREL (PF)) 1.3 % (13.3 mg/mL) 266 mg, NaCl 0.9% (NS) 100 mL ceFAZolin Yes PRN, Univers (ANCEF) 1 10-01 Starting ity of g, 15:05: Tue gentamicin 10/01/20 at [facility] ical 40 mg/mL 80 1005, Branch mg in NaCl Intra-op 0.9% (NS) 1,000 mL OR irrigation ceFAZolin 2020- No PRN, Univers (ANCEF) 1 10-01 Starting ity o f g, 15:05: 23:56 [facility] gentamicin 00 :25 10/01/20 at [facility] ical 40 mg/mL 80 1005, Branch mg in NaCl Intra-op 0.9% (NS) 1,000 mL OR irrigation scopolamine No 1.5mg 1.5 mg, U nivers transdermal 10-01 Topical, ity of (TRANSDERM- 11:45: 12:10 Administer [place] SCOP) patch 00 :00 over 71 Medic al 1.5 mg Hours, Branch ONCE, 1 dose, [facility] 10/01/20 at 06, Routine, DSU Pre-op gabapentin 2020- No 600mg 600 mg, Un cisco (NEURONTIN) 10-01 Oral, ity of tablet 600 11:45: 12:10 ONCE, 1 [place] mg 00 :00 dose, [facility] Medical 10/01/20 at [place] [address], Routine, DSU Pre-op celecoxib No 200mg 200 mg, Uni vers (CELEBREX) 10-01 Oral, ity of capsule 200 11:45: 12:10 ONCE, 1 [place] mg 00 :00 dose, [facility] Medical 10/01/20 at [place] [address], Routine, DSU Pre-op acetaminoph No 1000mg 1,000 mg, Univers en 10-01 Oral, ity of (TYLENOL) 11:45: 12:10 ONCE, 1 [place] tablet 00 :00 dose, [facility] Medical 1,000 mg 10/01/20 at [facility] 06, Routine, DSU Pre-op scopolamine No 1.5mg 1.5 mg, U nivers transdermal 10-01 Topical, ity of (TRANSDERM- 11:45: 23:56 Administer [place] SCOP) patch 00 :25 over 71 Medic al 1.5 mg Hours, Branch ONCE, 1 dose, [facility] 10/01/20 at [facility], Routine, DSU Pre-op gabapentin No 600mg 600 mg, Un cisco (NEURONTIN) 10-01 Oral, ity of tablet 600 11:45: 12:10 ONCE, 1 [place] mg 00 :00 dose, [facility] Medical 10/01/20 at [place] [address], Routine, DSU Pre-op celecoxib 2020-0 2020- No 200mg 200 mg, Uni vers (CELEBREX) 4-14 -14 Oral, ity of capsule 200 11:45: 12:10 ONCE, 1 [place] mg 00 :00 dose, Wed Medical 10/01/20 at [place] [address], Routine, DSU Pre-op acetaminoph 2020-0 2020- No 1000mg 1,000 mg, Univers en 4-14 - Oral, ity of (TYLENOL) 11:45: 12:10 ONCE, 1 [place] tablet 00 :[place] dose, Tue Medical 1,000 mg 10/01/20 at [place] [address], Routine, DSU Pre-op celecoxib 2020-0 Yes [id number] 200mg Take 1 Univers (CELEBREX) 4-14 capsule by ity of 200 mg 00:00: mouth 2 [place] capsule 00 (two) Medical times Branch daily with meals. acetaminoph 2020-0 Yes [id number] 1000mg Take 2 Univers en (TYLENOL 4-14 tablets by it y of EXTRA 00:00: mouth [place] STRENGTH) 00 every 8 Medical 500 mg (eight) Branch tablet hours. gabapentin 2020-0 Yes [id number] 600mg Take 1 Univers 600 mg 4-14 tablet by ity of tablet 00:00: mouth [place] 00 every 8 Medical (eight) Branch hours. sulfamethox 2020-0 Yes [id number] 1{tbl} Take 1 Univers azole-trime 4-14 tablet by ity of thoprim 00:00: mouth 2 [place] 800-160 mg 00 (two) Medical per tablet times Branch daily. celecoxib 2020-0 Yes [id number] 200mg Take 1 Univers (CELEBREX) 4-14 capsule by ity of 200 mg 00:00: mouth 2 [place] capsule 00 (two) Medical times Branch daily with meals. acetaminoph 202-0 Yes [id number] 1000mg Take 2 Univers en (TYLENOL 4-14 tablets by it y of EXTRA 00:00: mouth [place] STRENGTH) 00 every 8 Medical 500 mg (eight) Branch tablet hours. gabapentin 2020-0 Yes [id number] 600mg Take 1 Univers 600 mg 4-14 tablet by ity of tablet 00:00: mouth [place] 00 every 8 Medical (eight) Branch hours. sulfamethox 2021-0 Yes [id number] 1{tbl} Take 1 Univers azole-trime 4-14 tablet by ity of thoprim 00:00: mouth 2 [place] 800-160 mg 00 (two) Medical per tablet times Branch daily. celecoxib 2021-0 Yes [id number] 200mg Take 1 Univers (CELEBREX) 4-14 capsule by ity of 200 mg 00:00: mouth 2 [place] capsule 00 (two) Medical times Branch daily with meals. acetaminoph 2021-0 Yes [id number] 1000mg Take 2 Univers en (TYLENOL 4-14 tablets by it y of EXTRA 00:00: mouth [place] STRENGTH) 00 every 8 Medical 500 mg (eight) Branch tablet hours. gabapentin 202-0 Yes [id number] 600mg Take 1 Univers 600 mg 4-14 tablet by ity of tablet 00:00: mouth [place] 00 every 8 Medical (eight) Branch hours. sulfamethox 202-0 Yes [id number] 1{tbl} Take 1 Univers azole-trime 4-14 tablet by ity of thoprim 00:00: mouth 2 [place] 800-160 mg 00 (two) Medical per tablet times Branch daily. celecoxib 202-0 Yes [id number] 200mg Take 1 Univers (CELEBREX) 4-14 capsule by ity of 200 mg 00:00: mouth 2 [place] capsule 00 (two) Medical times Branch daily with meals. acetaminoph 2021-0 Yes [id number] 1000mg Take 2 Univers en (TYLENOL 4-14 tablets by it y of EXTRA 00:00: mouth [place] STRENGTH) 00 every 8 Medical 500 mg (eight) Branch tablet hours. gabapentin 2021-0 Yes [id number] 600mg Take 1 Univers 600 mg 4-14 tablet by ity of tablet 00:00: mouth [place] 00 every 8 Medical (eight) Branch hours. sulfamethox 2021-0 Yes [id number] 1{tbl} Take 1 Univers azole-trime 4-14 tablet by ity of thoprim 00:00: mouth 2 [place] 800-160 mg 00 (two) Medical per tablet times Branch daily. celecoxib 2021-0 Yes [id number] 200mg Take 1 Univers (CELEBREX) 4-14 capsule by ity of 200 mg 00:00: mouth 2 [place] capsule 00 (two) Medical times Branch daily with meals. acetaminoph 2021-0 Yes [id number] 1000mg Take 2 Univers en (TYLENOL 4-14 tablets by it y of EXTRA 00:00: mouth [place] STRENGTH) 00 every 8 Medical 500 mg (eight) Branch tablet hours. gabapentin 2021-0 Yes [id number] 600mg Take 1 Univers 600 mg 4-14 tablet by ity of tablet 00:00: mouth [place] 00 every 8 Medical (eight) Branch hours. sulfamethox 2021-0 Yes [id number] 1{tbl} Take 1 Univers azole-trime 4-14 tablet by ity of thoprim 00:00: mouth 2 [place] 800-160 mg 00 (two) Medical per tablet times Branch daily. celecoxib 2021-0 Yes [id number] 200mg Take 1 Univers (CELEBREX) 4-14 capsule by ity of 200 mg 00:00: mouth 2 [place] capsule 00 (two) Medical times Branch daily with meals. acetaminoph 2021-0 Yes [id number] 1000mg Take 2 Univers en (TYLENOL 4-14 tablets by it y of EXTRA 00:00: mouth [place] STRENGTH) 00 every 8 Medical 500 mg (eight) Branch tablet hours. sulfamethox 2021-0 Yes [id number] 1{tbl} Take 1 Univers azole-trime 4-14 tablet by ity of thoprim 00:00: mouth 2 [place] 800-160 mg 00 (two) Medical per tablet times Branch daily. gabapentin 1-0 Yes [id number] 600mg Take 1 Univers 600 mg 4-14 tablet by ity of tablet 00:00: mouth [place] 00 every 8 Medical (eight) Branch hours. celecoxib 2021-0 Yes [id number] 200mg Take 1 Univers (CELEBREX) 4-14 capsule by ity of 200 mg 00:00: mouth 2 [place] capsule 00 (two) Medical times Branch daily with meals. acetaminoph 2021-0 Yes [id number] 1000mg Take 2 Univers en (TYLENOL 4-14 tablets by it y of EXTRA 00:00: mouth [place] STRENGTH) 00 every 8 Medical 500 mg (eight) Branch tablet hours. sulfamethox 2021-0 Yes [id number] 1{tbl} Take 1 Univers azole-trime 4-14 tablet by ity of thoprim 00:00: mouth 2 [place] 800-160 mg 00 (two) Medical per tablet times Branch daily. celecoxib 2021-0 Yes [id number] 200mg Take 1 Univers (CELEBREX) 4-14 capsule by ity of 200 mg 00:00: mouth 2 [place] capsule 00 (two) Medical times Branch daily with meals. acetaminoph 2021-0 Yes [id number] 1000mg Take 2 Univers en (TYLENOL 4-14 tablets by it y of EXTRA 00:00: mouth [place] STRENGTH) 00 every 8 Medical 500 mg (eight) Branch tablet hours. sulfamethox 2021-0 Yes [id number] 1{tbl} Take 1 Univers azole-trime 4-14 tablet by ity of thoprim 00:00: mouth 2 [place] 800-160 mg 00 (two) Medical per tablet times Branch daily. gabapentin 2021-0 Yes [id number] 600mg Take 1 Univers 600 mg 4-14 tablet by ity of tablet 00:00: mouth [place] 00 every 8 Medical (eight) Branch hours. celecoxib 202-0 Yes [id number] 200mg Take 1 Univers (CELEBREX) 4-14 capsule by ity of 200 mg 00:00: mouth 2 [place] capsule 00 (two) Medical times Branch daily with meals. acetaminoph 2021-0 Yes [id number] 1000mg Take 2 Univers en (TYLENOL 4-14 tablets by it y of EXTRA 00:00: mouth [place] STRENGTH) 00 every 8 Medical 500 mg (eight) Branch tablet hours. sulfamethox 2021-0 Yes [id number] 1{tbl} Take 1 Univers azole-trime 4-14 tablet by ity of thoprim 00:00: mouth 2 [place] 800-160 mg 00 (two) Medical per tablet times Branch daily. gabapentin 2021-0 Yes [id number] 600mg Take 1 Univers 600 mg 4-14 tablet by ity of tablet 00:00: mouth [place] 00 every 8 Medical (eight) Branch hours. celecoxib 2021-0 Yes [id number] 200mg Take 1 Univers (CELEBREX) 4-14 capsule by ity of 200 mg 00:00: mouth 2 [place] capsule 00 (two) Medical times Branch daily with meals. acetaminoph 2021-0 Yes [id number] 1000mg Take 2 Univers en (TYLENOL 4-14 tablets by it y of EXTRA 00:00: mouth [place] STRENGTH) 00 every 8 Medical 500 mg (eight) Branch tablet hours. sulfamethox 2021-0 Yes [id number] 1{tbl} Take 1 Univers azole-trime 4-14 tablet by ity of thoprim 00:00: mouth 2 [place] 800-160 mg 00 (two) Medical per tablet times Branch daily. celecoxib 2021-0 Yes [id number] 200mg Take 1 Univers (CELEBREX) 4-14 capsule by ity of 200 mg 00:00: mouth 2 [place] capsule 00 (two) Medical times Branch daily with meals. acetaminoph 2021-0 Yes [id number] 1000mg Take 2 Univers en (TYLENOL 4-14 tablets by it y of EXTRA 00:00: mouth [place] STRENGTH) 00 every 8 Medical 500 mg (eight) Branch tablet hours. sulfamethox 2021-0 Yes [id number] 1{tbl} Take 1 Univers azole-trime 4-14 tablet by ity of thoprim 00:00: mouth 2 [place] 800-160 mg 00 (two) Medical per tablet times Branch daily. gabapentin 202-0 Yes [id number] 600mg Take 1 Univers 600 mg 4-14 tablet by ity of tablet 00:00: mouth [place] 00 every 8 Medical (eight) Branch hours. celecoxib 202-0 Yes [id number] 200mg Take 1 Univers (CELEBREX) 4-14 capsule by ity of 200 mg 00:00: mouth 2 [place] capsule 00 (two) Medical times Branch daily with meals. acetaminoph 2021-0 Yes [id number] 1000mg Take 2 Univers en (TYLENOL 4-14 tablets by it y of EXTRA 00:00: mouth [place] STRENGTH) 00 every 8 Medical 500 mg (eight) Branch tablet hours. sulfamethox 2021-0 Yes [id number] 1{tbl} Take 1 Univers azole-trime 4-14 tablet by ity of thoprim 00:00: mouth 2 [place] 800-160 mg 00 (two) Medical per tablet times Branch daily. gabapentin 2021-0 Yes [id number] 600mg Take 1 Univers 600 mg 4-14 tablet by ity of tablet 00:00: mouth [place] 00 every 8 Medical (eight) Branch hours. celecoxib 2021-0 Yes [id number] 200mg Take 1 Univers (CELEBREX) 4-14 capsule by ity of 200 mg 00:00: mouth 2 [place] capsule 00 (two) Medical times Branch daily with meals. acetaminoph 2021-0 Yes [id number] 1000mg Take 2 Univers en (TYLENOL 4-14 tablets by it y of EXTRA 00:00: mouth [place] STRENGTH) 00 every 8 Medical 500 mg (eight) Branch tablet hours. sulfamethox 2021-0 Yes [id number] 1{tbl} Take 1 Univers azole-trime 4-14 tablet by ity of thoprim 00:00: mouth 2 [place] 800-160 mg 00 (two) Medical per tablet times Branch daily. gabapentin 2021-0 Yes [id number] 600mg Take 1 Univers 600 mg 4-14 tablet by ity of tablet 00:00: mouth [place] 00 every 8 Medical (eight) Branch hours. celecoxib 202-0 Yes [id number] 200mg Take 1 Univers (CELEBREX) 4-14 capsule by ity of 200 mg 00:00: mouth 2 [place] capsule 00 (two) Medical times Branch daily with meals. acetaminoph 2021-0 Yes [id number] 1000mg Take 2 Univers en (TYLENOL 4-14 tablets by it y of EXTRA 00:00: mouth [place] STRENGTH) 00 every 8 Medical 500 mg (eight) Branch tablet hours. sulfamethox 2021-0 Yes [id number] 1{tbl} Take 1 Univers azole-trime 4-14 tablet by ity of thoprim 00:00: mouth 2 [place] 800-160 mg 00 (two) Medical per tablet times Branch daily. gabapentin 2021-0 Yes [id number] 600mg Take 1 Univers 600 mg 4-14 tablet by ity of tablet 00:00: mouth [place] 00 every 8 Medical (eight) Branch hours. celecoxib 2021-0 Yes [id number] 200mg Take 1 Univers (CELEBREX) 4-14 capsule by ity of 200 mg 00:00: mouth 2 [place] capsule 00 (two) Medical times Branch daily with meals. acetaminoph 2021-0 Yes [id number] 1000mg Take 2 Univers en (TYLENOL 4-14 tablets by it y of EXTRA 00:00: mouth [place] STRENGTH) 00 every 8 Medical 500 mg (eight) Branch tablet hours. sulfamethox 2021-0 Yes [id number] 1{tbl} Take 1 Univers azole-trime 4-14 tablet by ity of thoprim 00:00: mouth 2 [place] 800-160 mg 00 (two) Medical per tablet times Branch daily. gabapentin 2021-0 Yes [id number] 600mg Take 1 Univers 600 mg 4-14 tablet by ity of tablet 00:00: mouth [place] 00 every 8 Medical (eight) Branch hours. celecoxib 2021-0 Yes [id number] 200mg Take 1 Univers (CELEBREX) 4-14 capsule by ity of 200 mg 00:00: mouth 2 [place] capsule 00 (two) Medical times Branch daily with meals. acetaminoph 2021-0 Yes [id number] 1000mg Take 2 Univers en (TYLENOL 4-14 tablets by it y of EXTRA 00:00: mouth [place] STRENGTH) 00 every 8 Medical 500 mg (eight) Branch tablet hours. sulfamethox 2021-0 Yes [id number] 1{tbl} Take 1 Univers azole-trime 4-14 tablet by ity of thoprim 00:00: mouth 2 [place] 800-160 mg 00 (two) Medical per tablet times Branch daily. gabapentin 202-0 Yes [id number] 600mg Take 1 Univers 600 mg 4-14 tablet by ity of tablet 00:00: mouth [place] 00 every 8 Medical (eight) Branch hours. celecoxib 202-0 Yes [id number] 200mg Take 1 Univers (CELEBREX) 4-14 capsule by ity of 200 mg 00:00: mouth 2 [place] capsule 00 (two) Medical times Branch daily with meals. acetaminoph 2021-0 Yes [id number] 1000mg Take 2 Univers en (TYLENOL 4-14 tablets by it y of EXTRA 00:00: mouth [place] STRENGTH) 00 every 8 Medical 500 mg (eight) Branch tablet hours. sulfamethox 2021-0 Yes [id number] 1{tbl} Take 1 Univers azole-trime 4-14 tablet by ity of thoprim 00:00: mouth 2 [place] 800-160 mg 00 (two) Medical per tablet times Branch daily. gabapentin 2021-0 Yes [id number] 600mg Take 1 Univers 600 mg 4-14 tablet by ity of tablet 00:00: mouth [place] 00 every 8 Medical (eight) Branch hours. celecoxib 2021-0 Yes [id number] 200mg Take 1 Univers (CELEBREX) 4-14 capsule by ity of 200 mg 00:00: mouth 2 [place] capsule 00 (two) Medical times Branch daily with meals. acetaminoph 202-0 Yes [id number] 1000mg Take 2 Univers en (TYLENOL 4-14 tablets by it y of EXTRA 00:00: mouth [place] STRENGTH) 00 every 8 Medical 500 mg (eight) Branch tablet hours. sulfamethox 2020-0 Yes [id number] 1{tbl} Take 1 [facility] azole-trime 4-14 tablet by ity of thoprim 00:00: mouth 2 [place] 800-160 mg 00 (two) Medical per tablet times Branch daily. gabapentin 2020-0 Yes [id number] 600mg Take 1 [facility] 600 mg 4-14 tablet by ity of tablet 00:00: mouth [place] 00 every 8 Medical (eight) Branch hours. acetaminoph 2020-0 Yes [id number] 1000mg Take 2 [facility] en (TYLENOL 4-14 tablets by it y of EXTRA 00:00: mouth [place] STRENGTH) 00 every 8 Medical 500 mg (eight) Branch tablet hours. gabapentin 2020-0 Yes [id number] 600mg Take 1 [facility] 600 mg 4-14 tablet by ity of tablet 00:00: mouth [place] 00 every 8 Medical (eight) Branch hours. acetaminoph 2020-0 Yes [id number] 1000mg Take 2 [facility] en (TYLENOL 4-14 tablets by it y of EXTRA 00:00: mouth [place] STRENGTH) 00 every 8 Medical 500 mg (eight) Branch tablet hours. gabapentin 2020-0 Yes [id number] 600mg Take 1 [facility] 600 mg 4-14 tablet by ity of tablet 00:00: mouth [place] 00 every 8 Medical (eight) Branch hours. celecoxib 2020-0 2020- No [id number] 200mg Take 1 [facility] (CELEBREX) 4-14 05-11 capsule by it y of 200 mg 00:00: 00:00 mouth 2 [place] capsule 00 :00 (two) Medical times Branch daily with meals. sulfamethox 202-0 202- No [id number] 1{tbl} Take 1 [facility] azole-trime 4-14 05-11 tablet by it y of thoprim 00:00: 00:00 mouth 2 [place] 800-160 mg 00 :00 (two) Medical per tablet times Branch daily. celecoxib 2020-0 2020- No [id number] 200mg Take 1 [facility] (CELEBREX) 4-14 05-11 capsule by it y of 200 mg 00:00: 00:00 mouth 2 [place] capsule 00 :00 (two) Medical times Branch daily with meals. sulfamethox 2020-2020- No [id number] 1{tbl} Take 1 [facility] azole-trime -14 -11 tablet by it y of thoprim 00:00: 00:00 mouth 2 [place] 800-160 mg 00 :00 (two) Medical per tablet times Branch daily. gabapentin 2020-0 2020- No [id number] 600mg Take 1 [facility] 600 mg 4-14 -13 tablet by ity of tablet 00:00: 00:00 mouth [place] 00 :00 every 8 Medical (eight) Branch hours. gabapentin 2020-0 2020- No [id number] 600mg Take 1 [facility] 600 mg 4-14 -13 tablet by ity of tablet 00:00: 00:00 mouth [place] 00 :00 every 8 Medical (eight) Branch hours. gabapentin 2020-0 2020- No [id number] 600mg Take 1 [facility] 600 mg 4-14 -13 tablet by ity of tablet 00:00: 00:00 mouth [place] 00 :00 every 8 Medical (eight) Branch hours. celecoxib 2020-0 2021- No 200mg Take 1 Univ ers 200 mg 4-13 -21 capsule by ity of capsule 00:00: 04:59 mouth 2 [place] 00 :00 (two) Medical times Branch daily with meals for 7 days. celecoxib 2020-0 2021- No 200mg Take 1 Univ ers 200 mg 4-13 04-21 capsule by ity of capsule 00:00: 04:59 mouth 2 [place] 00 :00 (two) Medical times Branch daily with meals for 7 days. celecoxib 2020-0 2021- No 200mg Take 1 Univ ers 200 mg 4-13 04-21 capsule by ity of capsule 00:00: 04:59 mouth 2 [place] 00 :00 (two) Medical times Branch daily with meals for 7 days. celecoxib 2021-0 2021- No 200mg Take 1 Univ ers 200 mg 4-13 04-21 capsule by ity of capsule 00:00: 04:59 mouth 2 [place] 00 :00 (two) Medical times Branch daily with meals for 7 days. celecoxib 202-0 2021- No 200mg Take 1 Univ ers 200 mg 4-13 04-21 capsule by ity of capsule 00:00: 04:59 mouth 2 [place] 00 :00 (two) Medical times Branch daily with meals for 7 days. celecoxib 2020-0 202- No 200mg Take 1 Univ ers 200 mg -30 09-21 capsule by ity of capsule 00:00: 04:59 mouth 2 [place] 00 :00 (two) Medical times Branch daily with meals for 7 days. QUEtiapine 2020-0 Yes 50mg Take 50 mg U nivers (SEROQUEL) 4-08 by mouth ity o f 25 mg 15:34: every [place] tablet 17 evening. Medical Branch QUEtiapine 2020-0 Yes 50mg Take 50 mg U nivers (SEROQUEL) 4-08 by mouth ity o f 25 mg 15:34: every [place] tablet 17 evening. Medical Branch PAROXETINE 2020-0 Yes Take by Univ ers HCL ORAL 3-23 mouth. ity of 20:45: [place] [address] Medical Branch PAROXETINE 2020-0 Yes Take by Univ ers HCL ORAL 3-23 mouth. ity of 20:45: [place] [address] Medical Branch PAROXETINE 2020-0 Yes Take by Univ ers HCL ORAL 3-23 mouth. ity of 20:45: [place] [address] Medical Branch PAROXETINE 2020-0 Yes Take by Univ ers HCL ORAL 3-23 mouth. ity of 20:45: [address] Branch PAROXETINE 2020-0 Yes Take by Univ ers HCL ORAL 3-23 mouth. ity of 20:45: [place] [address] Medical Branch PAROXETINE 2020-0 Yes Take by Univ ers HCL ORAL 3-23 mouth. ity of 20:45: [place] [address] Medical Branch chlorhexidi 2020-0 Yes [id number] Apply to [facility] ne 4 % 3-23 area(s) ity of external 00:00: once daily [place] as liquid 00 as needed Medical for Other Branch (Shower before surgery). chlorhexidi 2020-0 Yes [id number] Apply to [facility] ne 4 % 3-23 area(s) ity of external 00:00: once daily [place] liquid 00 as needed Medical for Other Branch (Shower before surgery). chlorhexidi 2021-0 Yes [id number] Apply to [facility] ne 4 % 3-23 area(s) ity of external 00:00: once daily [place] liquid 00 as needed Medical for Other Branch (Shower before surgery). chlorhexidi 2021-0 Yes [id number] Apply to [facility] ne 4 % 3-23 area(s) ity of external 00:00: once daily [place] liquid 00 as needed Medical for Other Branch (Shower before surgery). chlorhexidi 2020-0 Yes [id number] Apply to [facility] ne 4 % 3-23 area(s) ity of external 00:00: once daily [place] liquid 00 as needed Medical for Other Branch (Shower before surgery). chlorhexidi 2020-0 Yes [id number] Apply to [facility] ne 4 % 3-23 area(s) ity of external 00:00: once daily [place] liquid 00 as needed Medical for Other Branch (Shower before surgery). chlorhexidi 2020-0 Yes [id number] Apply to Univers ne 4 % 3-23 area(s) ity of external 00:00: once daily [place] liquid 00 as needed Medical for Other Branch (Shower before surgery). chlorhexidi 2020-0 Yes [id number] Apply to [facility] ne 4 % 3-23 area(s) ity of external 00:00: once daily [place] liquid 00 as needed Medical for Other Branch (Shower before surgery). chlorhexidi 2020-0 Yes [id number] Apply to [facility] ne 4 % 3-23 area(s) ity of external 00:00: once daily [place] liquid 00 as needed Medical for Other Branch (Shower before surgery). chlorhexidi 2020-0 Yes [id number] Apply to Univers ne 4 % 3-23 area(s) ity of external 00:00: once daily [place] liquid 00 as needed Medical for Other Branch (Shower before surgery). chlorhexidi 2020-0 Yes [id number] Apply to [facility] ne 4 % 3-23 area(s) ity of external 00:00: once daily [place] liquid 00 as needed Medical for Other Branch (Shower before surgery). chlorhexidi 2021-0 Yes [id number] Apply to [facility] ne 4 % 3-23 area(s) ity of external 00:00: once daily [place] liquid 00 as needed Medical for Other Branch (Shower before surgery). chlorhexidi 2021-0 Yes [id number] Apply to [facility] ne 4 % 3-23 area(s) ity of external 00:00: once daily [place] liquid 00 as needed Medical for Other Branch (Shower before surgery). chlorhexidi 2020-0 Yes [id number] Apply to Univers ne 4 % 3-23 area(s) ity of external 00:00: once daily [place] liquid 00 as needed Medical for Other Branch (Shower before surgery). chlorhexidi 2020-0 Yes [id number] Apply to [facility] ne 4 % 3-23 area(s) ity of external 00:00: once daily [place] liquid 00 as needed Medical for Other Branch (Shower before surgery). chlorhexidi 2020-0 Yes [id number] Apply to [facility] ne 4 % 3-23 area(s) ity of external 00:00: once daily [place] liquid 00 as needed Medical for Other Branch (Shower before surgery). chlorhexidi 2020-0 Yes [id number] Apply to [facility] ne 4 % 3-23 area(s) ity of external 00:00: once daily [place] liquid 00 as needed Medical for Other Branch (Shower before surgery). chlorhexidi 0 Yes [id number] Apply to [facility] ne 4 % 3-23 area(s) ity of external 00:00: once daily [place] liquid 00 as needed Medical for Other Branch (Shower before surgery). chlorhexidi 2020- No [id number] Apply to [facility] ne 4 % 3-23 05-11 area(s) ity of external 00:00: 00:00 once daily [place] liquid 00 :00 as needed Medical for Other Branch (Shower before surgery). chlorhexidi 2020- No [id number] Apply to [facility] ne 4 % 3-23 05-11 area(s) ity of external 00:00: 00:00 once daily [place] liquid 00 :00 as needed Medical for Other Branch (Shower before surgery). buPROPion 2020-0 Yes 150mg Take 150 Uni vers XL 150 mg 3-10 mg by ity of 24 hr 00:00: mouth [place] tablet 00 every Medical morning. Branch buPROPion 2020-0 Yes 150mg Take 150 Uni vers XL 150 mg 3-10 mg by ity of 24 hr 00:00: mouth [place] tablet 00 every Medical morning. Branch buPROPion 2020-0 Yes 150mg Take 150 Uni vers XL 150 mg 3-10 mg by ity of 24 hr 00:00: mouth [place] tablet 00 every Medical morning. Branch buPROPion 2020-0 Yes 150mg Take 150 Uni vers XL 150 mg 3-10 mg by ity of 24 hr 00:00: mouth [place] tablet 00 every Medical morning. Branch buPROPion 2020-0 Yes 150mg Take 150 Uni vers XL 150 mg 3-10 mg by ity of 24 hr 00:00: mouth [place] tablet 00 every Medical morning. Branch buPROPion 2020-0 Yes 150mg Take 150 Uni vers XL 150 mg 3-10 mg by ity of 24 hr 00:00: mouth [place] tablet 00 every Medical morning. Branch buPROPion 2020-0 Yes 150mg Take 150 Uni vers XL 150 mg 3-10 mg by ity of 24 hr 00:00: mouth [place] tablet 00 every Medical morning. Branch buPROPion 2020-0 Yes 150mg Take 150 Uni vers XL 150 mg 3-10 mg by ity of 24 hr 00:00: mouth [place] tablet 00 every Medical morning. Branch buPROPion 2020-0 Yes 150mg Take 150 Uni vers XL 150 mg 3-10 mg by ity of 24 hr 00:00: mouth [place] tablet 00 every Medical morning. Branch buPROPion 2020-0 Yes 150mg Take 150 Uni vers XL 150 mg 3-10 mg by ity of 24 hr 00:00: mouth [place] tablet 00 every Medical morning. Branch buPROPion 2020-0 Yes 150mg Take 150 Uni vers XL 150 mg 3-10 mg by ity of 24 hr 00:00: mouth [place] tablet 00 every Medical morning. Branch buPROPion 2020-0 Yes 150mg Take 150 Uni vers XL 150 mg 3-10 mg by ity of 24 hr 00:00: mouth [place] tablet 00 every Medical morning. Branch buPROPion 2020-0 Yes 150mg Take 150 Uni vers XL 150 mg 3-10 mg by ity of 24 hr 00:00: mouth [place] tablet 00 every Medical morning. Branch buPROPion 1-0 Yes 150mg Take 150 Uni vers XL 150 mg 3-10 mg by ity of 24 hr 00:00: mouth [place] tablet 00 every Medical morning. Branch buPROPion 1-0 Yes 150mg Take 150 Uni vers XL 150 mg 3-10 mg by ity of 24 hr 00:00: mouth [place] tablet 00 every Medical morning. Branch buPROPion 2020-0 Yes 150mg Take 150 Uni vers XL 150 mg 3-10 mg by ity of 24 hr 00:00: mouth [place] tablet 00 every Medical morning. Branch buPROPion 2020-0 Yes 150mg Take 150 Uni vers XL 150 mg 3-10 mg by ity of 24 hr 00:00: mouth [place] tablet 00 every Medical morning. Branch buPROPion 2020-0 Yes 150mg Take 150 Uni vers XL 150 mg 3-10 mg by ity of 24 hr 00:00: mouth [place] tablet 00 every Medical morning. Branch buPROPion 2020-0 Yes 150mg Take 150 Uni vers XL 150 mg 3-10 mg by ity of 24 hr 00:00: mouth [place] tablet 00 every Medical morning. Branch buPROPion 2020-0 Yes 150mg Take 150 Uni vers XL 150 mg 3-10 mg by ity of 24 hr 00:00: mouth [place] tablet 00 every Medical morning. Branch busPIRone 5 2020-0 Yes 5mg Take 5 mg U nivers mg tablet 2-19 by mouth 2 ity of 00:00: (two) [place] 00 times Medical daily. Branch busPIRone 5 2020-0 Yes 5mg Take 5 mg U nivers mg tablet 2-19 by mouth 2 ity of 00:00: (two) [place] 00 times Medical daily. Branch busPIRone 5 2020-0 Yes 5mg Take 5 mg U nivers mg tablet 2-19 by mouth 2 ity of 00:00: (two) [place] 00 times Medical daily. Branch busPIRone 5 2020-0 Yes 5mg Take 5 mg U nivers mg tablet 2-19 by mouth 2 ity of 00:00: (two) [place] 00 times Medical daily. Branch busPIRone 5 2020-0 Yes 5mg Take 5 mg U nivers mg tablet 2-19 by mouth 2 ity of 00:00: (two) [place] 00 times Medical daily. Branch busPIRone 5 2020-0 Yes 5mg Take 5 mg U nivers mg tablet 2-19 by mouth 2 ity of 00:00: (two) [place] 00 times Medical daily. Branch busPIRone 5 2020-0 Yes 5mg Take 5 mg U nivers mg tablet 2-19 by mouth 2 ity of 00:00: (two) [place] 00 times Medical daily. Branch busPIRone 5 1-0 Yes 5mg Take 5 mg U nivers mg tablet 2-19 by mouth 2 ity of 00:00: (two) [place] 00 times Medical daily. Branch busPIRone 5 1-0 Yes 5mg Take 5 mg U nivers mg tablet 2-19 by mouth 2 ity of 00:00: (two) [place] 00 times Medical daily. Branch busPIRone 5 1-0 Yes 5mg Take 5 mg U nivers mg tablet 2-19 by mouth 2 ity of 00:00: (two) [place] 00 times Medical daily. Branch busPIRone 5 1-0 Yes 5mg Take 5 mg U nivers mg tablet 2-19 by mouth 2 ity of 00:00: (two) [place] 00 times Medical daily. Branch busPIRone 5 1-0 Yes 5mg Take 5 mg U nivers mg tablet 2-19 by mouth 2 ity of 00:00: (two) [place] 00 times Medical daily. Branch busPIRone 5 1-0 Yes 5mg Take 5 mg U nivers mg tablet 2-19 by mouth 2 ity of 00:00: (two) [place] 00 times Medical daily. Branch busPIRone 5 1-0 Yes 5mg Take 5 mg U nivers mg tablet 2-19 by mouth 2 ity of 00:00: (two) [place] 00 times Medical daily. Branch busPIRone 5 1-0 Yes 5mg Take 5 mg U nivers mg tablet 2-19 by mouth 2 ity of 00:00: (two) [place] 00 times Medical daily. Branch busPIRone 5 1-0 Yes 5mg Take 5 mg U nivers mg tablet 2-19 by mouth 2 ity of 00:00: (two) [place] 00 times Medical daily. Branch busPIRone 5 1-0 Yes 5mg Take 5 mg U nivers mg tablet 2-19 by mouth 2 ity of 00:00: (two) [place] 00 times Medical daily. Branch busPIRone 5 1-0 Yes 5mg Take 5 mg U nivers mg tablet 2-19 by mouth 2 ity of 00:00: (two) [place] 00 times Medical daily. Branch busPIRone 5 2021-0 Yes 5mg Take 5 mg U nivers mg tablet 2-19 by mouth 2 ity of 00:00: (two) [place] 00 times Medical daily. Branch busPIRone 5 2020-0 Yes 5mg Take 5 mg U nivers mg tablet 2-19 by mouth 2 ity of 00:00: (two) [place] 00 times Medical daily. Branch albuterol 2020-0 Yes INHALE ONE Un cisco 2.5 mg /3 1-19 VIAL VIA ity of mL (0.083 00:00: NEBULIZER [place] as %) 00 EVERY 4 Medical nebulizer HOURS Branch solution NEEDED albuterol 2020-0 Yes INHALE ONE [place] 2.5 mg /3 1-19 VIAL VIA ity of mL (0.083 00:00: NEBULIZER [place] as %) 00 EVERY 4 Medical nebulizer HOURS Branch solution NEEDED albuterol 2020-0 Yes INHALE ONE [place] 2.5 mg /3 1-19 VIAL VIA ity of mL (0.083 00:00: NEBULIZER [place] as %) 00 EVERY 4 Medical nebulizer HOURS Branch solution NEEDED albuterol 2020-0 Yes INHALE ONE Un [facility] 2.5 mg /3 1-19 VIAL VIA ity of mL (0.083 00:00: NEBULIZER [place] as %) 00 EVERY 4 Medical nebulizer HOURS Branch solution NEEDED albuterol 2020-0 Yes INHALE ONE [facility] 2.5 mg /3 1-19 VIAL VIA ity of mL (0.083 00:00: NEBULIZER [place] as %) 00 EVERY 4 Medical nebulizer HOURS Branch solution NEEDED albuterol 2020-0 Yes INHALE ONE [facility] [place] 2.5 mg /3 1-19 VIAL VIA ity of mL (0.083 00:00: NEBULIZER [place] as %) 00 EVERY 4 Medical nebulizer HOURS Branch solution NEEDED albuterol 1-0 Yes INHALE ONE [place] 2.5 mg /3 1-19 VIAL VIA ity of mL (0.083 00:00: NEBULIZER [place] as %) 00 EVERY 4 Medical nebulizer HOURS Branch solution NEEDED albuterol 2020-0 Yes INHALE ONE [place] 2.5 mg /3 1-19 VIAL VIA ity of mL (0.083 00:00: NEBULIZER [place] as %) 00 EVERY 4 Medical nebulizer HOURS Branch solution NEEDED albuterol 2021-0 Yes INHALE ONE Un [place] 2.5 mg /3 1-19 VIAL VIA ity of mL (0.083 00:00: NEBULIZER [place] as %) 00 EVERY 4 Medical nebulizer HOURS Branch solution NEEDED albuterol 2021-0 Yes INHALE ONE Un [place] 2.5 mg /3 1-19 VIAL VIA ity of mL (0.083 00:00: NEBULIZER [place] as %) 00 EVERY 4 Medical nebulizer HOURS Branch solution NEEDED albuterol 2021-0 Yes INHALE ONE Un [place] 2.5 mg /3 1-19 VIAL VIA ity of mL (0.083 00:00: NEBULIZER [place] as %) 00 EVERY 4 Medical nebulizer HOURS Branch solution NEEDED albuterol 2021-0 Yes INHALE ONE [place] 2.5 mg /3 1-19 VIAL VIA ity of mL (0.083 00:00: NEBULIZER [place] as %) 00 EVERY 4 Medical nebulizer HOURS Branch solution NEEDED albuterol 2021-0 Yes INHALE ONE Un [place] 2.5 mg /3 1-19 VIAL VIA ity of mL (0.083 00:00: NEBULIZER [place] as %) 00 EVERY 4 Medical nebulizer HOURS Branch solution NEEDED albuterol 2021-0 Yes INHALE ONE Un cis[place] 2.5 mg /3 1-19 VIAL VIA ity of mL (0.083 00:00: NEBULIZER [place] as %) 00 EVERY 4 Medical nebulizer HOURS Branch solution NEEDED albuterol 2021-0 Yes INHALE ONE Un cis[place] 2.5 mg /3 1-19 VIAL VIA ity of mL (0.083 00:00: NEBULIZER [place] as %) 00 EVERY 4 Medical nebulizer HOURS Branch solution NEEDED albuterol 2021-0 Yes INHALE ONE Un cisco 2.5 mg /3 1-19 VIAL VIA ity of mL (0.083 00:00: NEBULIZER [place] as %) 00 EVERY 4 Medical nebulizer HOURS Branch solution NEEDED albuterol 2021-0 Yes INHALE ONE Un cis[place] 2.5 mg /3 1-19 VIAL VIA ity of mL (0.083 00:00: NEBULIZER [place] as %) 00 EVERY 4 Medical nebulizer HOURS Branch solution NEEDED albuterol Yes INHALE ONE Un cis[place] 2.5 mg /3 1-19 VIAL VIA ity of mL (0.083 00:00: NEBULIZER [place] as %) 00 EVERY 4 Medical nebulizer HOURS Branch solution NEEDED albuterol Yes INHALE ONE Un cis[place] 2.5 mg /3 1-19 VIAL VIA ity of mL (0.083 00:00: NEBULIZER [place] as %) 00 EVERY 4 Medical nebulizer HOURS Branch solution NEEDED albuterol 0 Yes INHALE ONE Un cisco 2.5 mg /3 1-19 VIAL VIA ity of mL (0.083 00:00: NEBULIZER [place] as %) 00 EVERY 4 Medical nebulizer HOURS Branch solution NEEDED PAROXETINE 2019-06 Yes Take by Univ ers HCL ORAL 0-30 mouth. ity of 18:17: [address] PAROXETINE 2019-06 Yes Take by Univ ers HCL ORAL 0-30 mouth. ity of 18:17: [address] PAROXETINE 2019-06 Yes Take by Univ ers HCL ORAL 0-30 mouth. ity of 18:17: [address] PAROXETINE 2019-06 Yes Take by Univ ers HCL ORAL 0-30 mouth. ity of 18:17: [address] PAROXETINE 2019-06 Yes Take by Univ ers HCL ORAL 0-30 mouth. ity of 18:17: [address] PAROXETINE 2019-06 Yes Take by Univ ers HCL ORAL 0-30 mouth. ity of 18:17: [address] PAROXETINE 2019-06 Yes Take by Univ ers HCL ORAL 0-30 mouth. ity of 18:17: [address] PAROXETINE 2019-06 Yes Take by Univ ers HCL ORAL 0-30 mouth. ity of 18:17: [address] PAROXETINE 2019-06 Yes Take by Univ ers HCL ORAL 0-30 mouth. ity of 18:17: [address] PAROXETINE 2019-06 Yes Take by Univ ers HCL ORAL 0-30 mouth. ity of 18:17: [address] PAROXETINE 2019-06 Yes Take by Univ ers HCL ORAL 0-30 mouth. ity of 18:17: [address] No known No Univers medications ity of [facility] [place] [facility] No known No Univers medications ity of [facility] [place] [facility] No known No Univers medications it of [facility] [place] [facility] Immunizations Ordered Filled Immunization Date Status Comments Sour e Immunization Name Name Influenza Virus 2017-05-02 Completed [facility] y of [facility] 3+ 00:00:00 [facility] Influenza Virus 2017-05-02 Completed Universit y of Vaccine [facility] IM 3+ 00:00:00 [facility] Influenza Virus 2017-05-02 Completed Universit y of Vaccine [facility] IM 3+ 00:00:00 [facility] Influenza Virus 2017-05-02 Completed Universit y of Vaccine [facility] IM 3+ 00:00:00 [facility] Influenza Virus 2017-05-02 Completed Universit y of Vaccine [facility] IM 3+ 00:00:00 [facility] Influenza Virus 2017-05-02 Completed Universit y of Vaccine [facility] IM 3+ 00:00:00 [facility] Influenza Virus 2017-05-02 Completed Universit y of Vaccine [facility] IM 3+ 00:00:00 [facility] Influenza Virus 2017-05-02 Completed Universit y of Vaccine [facility] IM 3+ 00:00:00 [facility] Influenza Virus 2017-05-02 Completed Universit y of Vaccine [facility] IM 3+ 00:00:00 [facility] Influenza Virus 2017-05-02 Completed Universit y of Vaccine [facility] IM 3+ 00:00:00 [facility] Influenza Virus 2017-05-02 Completed Universit y of Vaccine [facility] IM 3+ 00:00:00 [facility] Influenza Virus 2017-05-02 Completed Universit y of Vaccine [facility] IM 3+ 00:00:00 [facility] Influenza Virus 2017-05-02 Completed Universit y of Vaccine [facility] IM 3+ 00:00:00 [facility] Influenza Virus 2017-05-02 Completed Universit y of Vaccine [facility] IM 3+ 00:00:00 [facility] Influenza Virus 2017-05-02 Completed Universit y of Vaccine [facility] IM 3+ 00:00:00 [facility] Influenza Virus 2017-05-02 Completed Universit y of Vaccine Quad IM 3+ 00:00:00 [facility] Influenza Virus 2017-05-02 Completed Universit y of Vaccine [facility] IM 3+ 00:00:00 [facility] Influenza Virus 2017-05-02 Completed Universit y of Vaccine [facility] IM 3+ 00:00:00 [facility] Influenza Virus 2017-05-02 Completed Universit y of Vaccine [facility] IM 3+ 00:00:00 [facility] Influenza Virus 2017-05-02 Completed Universit y of Vaccine [facility] IM 3+ 00:00:00 [facility] Influenza Virus 2017-05-02 Completed Universit y of Vaccine [facility] IM 3+ 00:00:00 [facility] Influenza Virus 2017-05-02 Completed Universit y of Vaccine [facility] IM 3+ 00:00:00 [facility] Influenza Virus 2017-05-02 Completed Universit y of Vaccine [facility] IM 3+ 00:00:00 [facility] Influenza Virus 2017-05-02 Completed Universit y of Vaccine [facility] IM 3+ 00:00:00 [facility] Influenza Virus 2017-05-02 Completed Universit y of Vaccine [facility] IM 3+ 00:00:00 [facility] Influenza Virus 2017-05-02 Completed Universit y of Vaccine [facility] IM 3+ 00:00:00 [facility] Influenza Virus 2017-05-02 Completed Universit y of Vaccine [facility] IM 3+ 00:00:00 [facility] Influenza Virus 2017-05-02 Completed Universit y of Vaccine [facility] IM 3+ 00:00:00 [facility] Influenza Virus 2017-05-02 Completed Universit y of Vaccine [facility] IM 3+ 00:00:00 [facility] Influenza Virus 2017-05-02 Completed Universit y of Vaccine [facility] IM 3+ 00:00:00 [facility] Influenza Virus 2017-05-02 Completed Universit y of Vaccine Quad IM 3+ 00:00:00 [facility] Influenza Virus 2017-05-02 Completed Universit y of Vaccine [facility] IM 3+ 00:00:00 [facility] Influenza Virus 2017-05-02 Completed Universit y of Vaccine [facility] IM 3+ 00:00:00 [facility] Influenza Virus 2017-05-02 Completed Universit y of Vaccine Quad IM 3+ 00:00:00 [facility] Vital Signs Vital Name Observation Time Observation Value Comments Source Systolic blood 2020-10-28 14:20:00 127 mm[Hg] Univer sity of pressure [facility] [place] [facility] Diastolic blood 2020-10-28 14:20:00 77 mm[Hg] Unive rsity of pressure [facility] [place] [facility] Heart rate 2020-10-28 14:20:00 74 /min [facility] [place] [facility] Body temperature 2020-10-28 14:20:00 36.67 Amy [facility] [place] [facility] Respiratory rate 2020-10-28 14:20:00 18 /min [facility] [place] [facility] Body height 2020-10-28 14:20:00 157.5 cm [facility] [place] [facility] Body weight 2020-10-28 14:20:00 89.223 kg [facility] [place] [facility] BMI 2020-10-28 14:20:00 35.98 kg/m2 [facility] [place] [facility] Oxygen saturation in 2020-10-28 14:20:00 99 /min [facility] of Arterial blood by [place] [employer] josemanuel Pulse oximetry Branch Systolic blood 2020-10-21 16:33:00 126 mm[Hg] Univer sity of pressure [place] [facility] Diastolic blood 2020-10-21 16:33:00 78 mm[Hg] Unive rsity of pressure [place] [facility] Heart rate 2020-10-21 16:33:00 81 /min [facility] [place] [facility] Body temperature 2020-10-21 16:33:00 36.5 Amy [facility] [place] [facility] Respiratory rate 2020-10-21 16:33:00 18 /min [facility] [place] [facility] Body height 2020-10-21 16:33:00 157.5 cm [facility] [place] [facility] Body weight 2020-10-21 16:33:00 87.091 kg [facility] [place] [facility] BMI 2020-10-21 16:33:00 35.12 kg/m2 [facility] [place] [facility] Oxygen saturation in 2020-10-21 16:33:00 98 /min University of Arterial blood by [place] [employer] josemanuel Pulse oximetry Branch Systolic blood 2020-10-14 16:10:00 102 mm[Hg] Univer [facility]ity of [facility] Diastolic blood 2020-10-14 16:10:00 64 mm[Hg] Unive rsity of [facility] Heart rate 2020-10-14 16:10:00 86 /min [facility] Body temperature 2020-10-14 16:10:00 36.94 Amy [facility] Respiratory rate 2020-10-14 16:10:00 18 /min [facility] Body height 2020-10-14 16:10:00 157.5 cm [facility] Body weight 2020-10-14 16:10:00 88.542 kg [facility] BMI 2020-10-14 16:10:00 35.70 kg/m2 [facility] Oxygen saturation in 2020-10-14 16:10:00 98 /min University of Arterial blood by [facility] Pulse oximetry Branch Systolic blood 2020-10-07 16:21:00 124 mm[Hg] Univer [facility]ity of [facility] Diastolic blood 2020-10-07 16:21:00 85 mm[Hg] Unive rsity of [facility] Heart rate 2020-10-07 16:21:00 91 /min [facility] Body temperature 2020-10-07 16:21:00 36.56 Amy [facility] Respiratory rate 2020-10-07 16:21:00 20 /min [facility] Body height 2020-10-07 16:21:00 157.5 cm [facility] Body weight 2020-10-07 16:21:00 87.454 kg [facility] BMI 2020-10-07 16:21:00 35.26 kg/m2 [facility] Oxygen saturation in 2020-10-07 16:21:00 99 /min University of Arterial blood by [facility] Pulse oximetry Branch Systolic blood 2020-10-02 16:42:00 128 mm[Hg] [facility] Diastolic blood 2020-10-02 16:42:00 77 mm[Hg] Unive rs[facility] of [facility] Heart rate 2020-10-02 16:42:00 98 /min [facility] Body temperature 2020-10-02 16:42:00 36.78 Amy [facility] Respiratory rate 2020-10-02 16:42:00 17 /min [facility] Body height 2020-10-02 16:42:00 157.5 cm [facility] Body weight 2020-10-02 16:42:00 86.138 kg [facility] BMI 2020-10-02 16:42:00 34.73 kg/m2 [facility] Oxygen saturation in 2020-10-02 16:42:00 99 /min [facility] of Arterial blood by [facility] Pulse oximetry Branch Systolic blood 2020-10-01 21:30:00 144 mm[Hg] [facility] Diastolic blood 2020-10-01 21:30:00 94 mm[Hg] [facility]ive rs[facility] Heart rate 2020-10-01 21:30:00 107 /min [facility] Respiratory rate 2020-10-01 21:30:00 15 /min [facility] Oxygen saturation in 2020-10-01 21:30:00 98 /min [facility] of Arterial blood by [facility] Pulse oximetry Branch Body temperature 2020-10-01 20:02:00 36.39 Amy [facility] Body height 2020-10-01 11:39:00 157.5 cm [facility] Body weight 2020-10-01 11:39:00 84.369 kg [facility] BMI 2020-10-01 11:39:00 34.02 kg/m2 [facility] Systolic blood 2020-10-01 11:39:00 128 mm[Hg] [facility] Diastolic blood 2020-10-01 11:39:00 75 mm[Hg] [facility] Heart rate 2020-10-01 11:39:00 83 /min [facility] Body temperature 2020-10-01 11:39:00 36.61 Amy [facility] Respiratory rate 2020-10-01 11:39:00 16 /min [facility] Body height 2020-10-01 11:39:00 157.5 cm [facility] Body weight 2020-10-01 11:39:00 84.369 kg [facility] BMI 2020-10-01 11:39:00 34.02 kg/m2 [facility] Oxygen saturation in 2020-10-01 11:39:00 99 /min University of Arterial blood by [facility] Pulse oximetry Branch Systolic blood 2020-09-09 20:47:00 118 mm[Hg] [facility] Diastolic blood 2020-09-09 20:47:00 76 mm[Hg] Unive [facility] Heart rate 2020-09-09 20:47:00 89 /min [facility] Body temperature 2020-09-09 20:47:00 37 Amy [facility] Respiratory rate 2020-09-09 20:47:00 18 /min [facility] Body height 2020-09-09 20:47:00 157.5 cm [facility] Body weight 2020-09-09 20:47:00 85.775 kg [facility] BMI 2020-09-09 20:47:00 34.59 kg/m2 [facility] Oxygen saturation in 2020-09-09 20:47:00 98 /min University of Arterial blood by [facility] Pulse oximetry Branch Systolic blood 2020-08-22 19:02:00 129 mm[Hg] [facility] Diastolic blood 2020-08-22 19:02:00 89 mm[Hg] Unive [facility] Heart rate 2020-08-22 19:02:00 86 /min [facility] [place] Body temperature 2020-08-22 19:02:00 36.78 Amy [facility] Respiratory rate 2020-08-22 19:02:00 16 /min [facility] Body height 2020-08-22 19:02:00 157.5 cm [facility] Body weight 2020-08-22 19:02:00 85.049 kg [facility] BMI 2020-08-22 19:02:00 34.29 kg/m2 [facility] Systolic blood 2020-04-18 18:16:00 120 mm[Hg] [facility] Diastolic blood 2020-04-18 18:16:00 77 mm[Hg] [facility]ive [facility] Heart rate 2020-04-18 18:16:00 79 /min [facility] Body temperature 2020-04-18 18:16:00 37.17 Amy [facility] Respiratory rate 2020-04-18 18:16:00 16 /min [facility] Body height 2020-04-18 18:16:00 157.5 cm [facility] Body weight 2020-04-18 18:16:00 84.097 kg [facility] BMI 2020-04-18 18:16:00 33.91 kg/m2 [facility] Systolic blood 2020-04-18 18:16:00 120 mm[Hg] [facility] Diastolic blood 2020-04-18 18:16:00 77 mm[Hg] Unive [facility] Heart rate 2020-04-18 18:16:00 79 /min [facility] Body temperature 2020-04-18 18:16:00 37.17 Amy [facility] Respiratory rate 2020-04-18 18:16:00 16 /min [facility] Body height 2020-04-18 18:16:00 157.5 cm [facility] Body weight 2020-04-18 18:16:00 84.097 kg [facility] BMI 2020-04-18 18:16:00 33.91 kg/m2 [facility] Systolic blood 2019-08-27 08:37:00 134 mm[Hg] [facility] Diastolic blood 2019-08-27 08:37:00 70 mm[Hg] [facility] Heart rate 2019-08-27 08:37:00 82 /min [facility] Body temperature 2019-08-27 08:37:00 37.28 Amy [facility] Respiratory rate 2019-08-27 08:37:00 18 /min [facility] Body height 2019-08-27 08:37:00 157.5 cm [facility] Body weight 2019-08-27 08:37:00 69.4 kg [facility] BMI 2019-08-27 08:37:00 27.98 kg/m2 [facility] Oxygen saturation in 2019-08-27 08:37:00 96 /min University Arterial blood by [facility] Pulse oximetry Branch Procedures Procedure Date / Time Performing Clinician Source Performed REDUCTION MAMMOPLASTY 2020-10-01 13:51:00 Pippa Bass [facility] [place] CONSENT/REFUSAL FOR 2020-10-01 11:34:48 Doctor Polina [facility] DIAGNOSIS AND TREATMENT [facility] CONSENT/REFUSAL FOR 2020-10-01 11:34:48 Doctor Polina [facility] DIAGNOSIS AND TREATMENT [facility] ASSIGNMENT OF BENEFITS 2020-10-01 11:33:37 Doctor Polina, [facility] ASSIGNMENT OF BENEFITS 2020-10-01 11:33:37 Doctor Polina, [facility] 2020-10-01 05:01:00 Doctor Fish [facility] Name Medical [place] POCT NICOTINE-URINE/PLASMA 2020-09-09 21:35:00 London Quevedo [facility] [place] DISCLOSURE AND CONSENT, 2020-09-09 05:01:00 Doctor Fish, [facility] MEDICAL AND SURGICAL [facility] PROCEDURES DISCLOSURE AND CONSENT, 2020-09-09 05:01:00 Doctor Polina, [facility] MEDICAL AND SURGICAL [facility] PROCEDURES INSURANCE CORRESPONDENCE 2020-09-02 05:01:00 Doctor Fish [facility] Name Medical [place] NO SHOW OR MISSED 2020-08-22 18:53:29 Doctor Fish [facility] APPOINTMENT POLICY [facility] h ACKNOWLEDGEMENT REFERRAL- REQUEST/RESPONSE 2020-03-25 05:01:00 Doctor Fish [facility] [place] NOTICE OF PRIVACY 2019-08-27 08:31:17 Doctor Fish [facility] PRACTICES [facility] ASSIGNMENT OF BENEFITS 2019-08-27 08:28:10 Doctor Polina [facility] CONSENT/REFUSAL FOR 2019-08-27 08:27:57 Doctor Fish [facility] DIAGNOSIS AND TREATMENT [facility] CONSENT/REFUSAL FOR 2019-08-27 08:27:56 Doctor Unassigned, [facility] DIAGNOSIS AND TREATMENT [facility] Encounters Start End Encounter Admission Attending Care Care Encounter Source Date/Time Date/Time Type Type Clinicians Facility Department ID 2022-04-22 Outpatient Zaldivar, STLMLC STLMLC [id number] Common 11:24:01 Pepito [id number] [facility] 2022-02-18 Outpatient Zaldivar, STLMLC STLMLC [id number] Common 11:08:01 Pepito [facility] 2021-07-15 Outpatient Zaldivar, STLMLC STLMLC [id number] Common 13:28:23 Pepito [id number] [facility] 2021-07-15 Outpatient Zaldivar, STLMLC STLMLC [id number] Common 13:25:29 Pepito [id number] [facility] 2021-07-15 Outpatient Zaldivar, STLMLC STLMLC [id number] Common 13:01:26 Pepito 10103 [facility] 2021-07-15 Outpatient Zaldivar, STLMLC STLMLC [id number] Common 12:35:32 Pepito [id number] [facility] 2021-07-15 Outpatient Zaldivar, STLMLC STLMLC [id number] Common 12:33:04 Pepito [id number] [facility] 2021-07-15 Outpatient Zaldivar, STLMLC STLMLC [id number] Common 12:31:48 Pepito 13371 [facility] 2021-07-15 Outpatient Zaldivar, STLMLC STLMLC [id number] Common 12:25:38 Pepito [id number] [facility] 2021-07-15 Outpatient Zaldivar, STLMLC STLMLC [id number] Common 12:19:51 Pepito [id number] [facility] 2021-07-15 Outpatient STLMLC STLMLC [id number] Common 12:12:48 [id number] [facility] 2021-07-15 Outpatient STLMLC STLMLC [id number] Common 12:11:42 [id number] [facility] 2021-07-15 Outpatient Millender, STLMLC [facility] [id number] Common 12:11:03 Estefania 12552 [facility] 2021-07-15 Outpatient RENZO Torres [facility] [id number] Common 11:49:02 Estefania 43956 [facility] 2021-07-15 Outpatient Brian STARLET [facility] [id number] Common 11:48:16 Estefania 40301 [facility] 2021-07-15 Outpatient RENZO Torres [facility] [id number] Common 11:34:15 Estefania 41071 [facility] 2021-04-19 Outpatient KALI [facility] [id number] Univers 08:01:13 PIPPA duggan [facility] 2020-11-25 2020-11-25 Outpatient Josephine [facility] [id number] Univers 10:00:00 10:00:00 PIPPA duggan [facility] 2020-11-11 2020-11-11 Outpatient Josephine [facility] [id number] Univers 10:30:00 10:30:00 PIPPA duggan [facility] 2020-10-28 2020-10-28 [facility] [id number] Univers 09:13:04 09:33:22 Visit Janett SPECIALTY [id number] ity of CARE [id number] [facility] AT [phone] [place] ven[place] CHERY [address] [place] [address] 2020-10-28 2020-10-28 Outpatient Josephine [facility] [id number] Univers 09:30:00 09:30:00 JANETT duggan o f [facility] 2020-10-21 2020-10-21 [facility] [id number] Univers 11:18:32 11:55:54 Visit Janett SPECIALTY [id number] ity of CARE [id number] [facility] s [place] AT [phone] [place] CHERY [address] [place] [address] 2020-10-21 2020-10-21 Outpatient R [facility] [id number] Univers 11:30:00 11:30:00 JANETT olga lidia lemus angel [facility] 2020-10-14 2020-10-14 Office Stephan [facility] 1.2.840.114 [id number] Univers 10:57:47 11:31:22 Visit Janett SPECIALTY [id number] [id number] [phone] [address] 2020-10-14 2020-10-14 Outpatient R [facility] [id number] Univers 11:00:00 11:00:00 JANETT lemus [facility] 2020-10-14 2020-10-14 DORIS De La Torre 1.2.840.114 [id number] Univers 00:00:00 00:00:00 [facility] [id number] i [id number] [phone] [address] 2020-10-07 2020-10-07 Office Stephan [facility] 1.2.840.114 [id number] Univers 10:57:05 11:44:01 Visit Janett SPECIALTY [id number] it[id number] [phone] [address] 2020-10-07 2020-10-07 Outpatient R [facility] [id number] Univers 11:00:00 11:00:00 JANETT lemus angel [facility] 2020-10-02 2020-10-02 Office Janett Rothman [facility] 1.2.840. 114 [id number] Univers 11:32:06 12:07:14 Visit Pippa Bass SPECIALTY 350.1.13.1 0 [id number] [phone] [address] 2020-10-02 2020-10-02 Outpatient R [facility] [id number] Univers 10:30:00 10:30:00 JANETT ity o f [facility] 2020-10-01 2020-10-01 Hospital Neva Bass 1.2.840.114 [id number] Univers 06:32:00 16:51:00 Encounter Pippa Salomon [id number] ity of Hospital 4.2.7.2.686 [place] as [phone] [facility] 104 Branch 2020-10-01 2020-10-01 Surgery Neva Bass [id number] Univers 09:00:00 14:26:00 Pippa Salomon [id number] it y of Hospital 4.2.7.2.686 [place] as [phone] [facility] 103 Branch 2020-10-01 2020-10-01 Orders Doctor ISABEL 1.2.840.114 [id number] Univers 00:00:00 00:00:00 Only Unassigned, UMM 350.1.13.10 [facility]y of [facility] 4.2.7.2.686 [place] as [phone] [facility] 009 Branch 2020-09-30 2020-09-30 Refill Kali [facility] 1.2.840.114 [id number] Univers 00:00:00 00:00:00 Pippa Garcia HEALTH 350.1.13.10 i [place] [phone] [facility] 201 Branch 2020-09-29 2020-09-29 Telephone ENRRIQUE Bass 1.2.840.114 [id number] Univers 00:00:00 00:00:00 Pippa Garcia HEALTH 350.1.13.10 i ty [place] [phone] [facility] 201 Branch 2020-09-09 2020-09-09 Office Kali NYMAGDA [id number] [facility] 15:17:26 15:32:26 Visit Pippa Oseguera SPECIALTY 350.1.13.10 [place]2.[place] [phone] Oh venus [facility] 201 [facility] 2020-09-09 2020-09-09 Outpatient Josephine [facility] [id number] Univers 15:15:00 15:15:00 PIPPA duggan [facility] 2020-09-09 2020-09-09 Prep For Sae [facility] 1.2.840.114 [id number] Univers 00:00:00 00:00:00 Surgery [place] SPECIALTY [id number] [place] [phone] [address] 2020-09-02 2020-09-02 Orders Doctor ISABEL 1.2.840.114 [id number] Univers 00:00:00 00:00:00 Only Unassigned, UMM 350.1.13.10 [facility] 4.2.7.2.686 [place] as [phone] [address] 2020-09-02 2020-09-02 Telephone ENRRIQUE Bass 1.2.840.114 [id number] Univers 00:00:00 00:00:00 Pippa Garcia [facility] 350.1.13.10 i ty [place] [phone] [address] 2020-08-22 2020-08-22 Office ENRRIQUE Bass 1.2.840.114 [id number] Univers 12:52:37 13:29:20 Visit Pippa H[place] 350.1.13.10 i ty [place] [phone] [address] 2020-08-22 2020-08-22 Outpatient Josephine [facility] [id number] Univers 13:00:00 13:00:00 PIPPA duggan [facility] 2020-08-22 2020-08-22 Letter Doctor ISABEL 1.2.840.114 [id number] Univers 00:00:00 00:00:00 (Out) Unassigned, UMM 350.1.13.10 [facility] 4.2.7.2.686 [place] as [phone] [address] 2020-08-22 2020-08-22 Orders Doctor ISABEL 1.2.840.114 [id number] Univers 00:00:00 00:00:00 Only Unassigned, UMM 350.1.13.10 [place]y of [place] [facility] 4.2.7.2.686 [place] [phone] [place] [address] Branch 2020-08-22 2020-08-22 Telephone Kali DORISMARÍA 1.2.840.114 [id number] Univers 00:00:00 00:00:00 Pippa [place] 350.1.13.10 i ty of CL[place]ICS [place] [phone] [facility] 201 [place] 2020-08-08 2020-08-08 Outpatient Josephine [facility] [id number] Univers 13:00:00 13:00:00 PIPPA maríarubina [facility] 2020-05-23 2020-05-23 Outpatient Josephine [facility] [id number] Univers 13:30:00 13:30:00 PIPPA danielrubina [facility] 2020-04-18 2020-04-21 Office Kali [facility] 1.2.840.114 [id number] Univers 13:02:53 08:21:27 Visit Pippa [place] 350.1.13.10 i [place] CL[place] [id number] [address] 2020-04-18 2020-04-21 Office DORIS Bass 1.2.840.114 [id number] 13:02:53 08:21:27 Visit Pippa HALE 350.1.13.10 CLINICS 4.2.7.2.686 [id number] 2020-04-18 2020-04-18 Outpatient Josephine [facility] [id number] Univers 13:00:00 13:00:00 PIPPA danielrubina [facility] 2020-04-18 2020-04-18 Outpatient Josephine [facility] [id number] Univers 10:30:00 10:30:00 PIPPA rubina [facility] 2020-04-11 2020-04-11 Letter ISABEL Torres 1.2.840.114 [id number] Univers 00:00:00 00:00:00 (Out) Estefania SALOMON 350.1.13.10 it y of HOSPITAL 4.2.7.2.686 [place] as [phone] [facility] 043 Branch 2020-03-25 2020-03-25 Orders Doctor ISABEL 1.2.840.114 [id number] Univers 00:00:00 00:00:00 Only Unassigned, UMM 350.1.13.10 [facility] [place] [facility] 4.2.7.2.686 [place] as [id number] [facility] 009 Branch 2019-08-27 2019-08-27 Emergency [facility] 1.2.921.710 [id number] Univers 03:40:50 04:03:00 Mark Zamora 350.1.13.10 i ty of [place] [phone] [facility] 084 [place] 2019-08-27 2019-08-27 Emergency X [facility] ERT [id number] Univers 03:40:50 03:40:50 MARK duggan [facility] Results Test Description Test Time Test Comments Results Result Comments Source POCT NICOTINE-URINE/PLASMA 2020-09-09 21:50:00 Test Item Value Reference Range Interpretation Comme nts POCT NICOTINE URINE/PLASMA (test code = 4026) negative Positive - Negative Lab Interpretation (test code = 01645-8) Normal [facility] NICOTINE-URINE/[id number] 21:50:00 Test Item Value Reference Range Interpretation Comments POCT NICOTINE URINE/PLASMA (test negative Positive - Negative code = 4026) Lab Interpretation (test code = Normal 62314-9) [facility] NICOTINE-URINE/[id number] 21:50:00 Test Item Value Reference Range Interpretation Comments POCT NICOTINE URINE/PLASMA (test negative Positive - Negative code = 4026) Lab Interpretation (test code = Normal 99328-2) [facility]
[2022-06-15] MEDS ORDERED: LEVALBUTEROL 1.25 MG/3 ML NEB ONE (01:42)
--- NOTE | 2022-06-15 02:53 | ER ---
Nurse's Notes [facility] Name: Guillermina Akins Age: 27 yrs Sex: Female : 1995 Arrival Date: 06/15/2022 Time: : Bed 24 Private MD: Diagnosis: Unspecified asthma, uncomplicated Presentation: 06/15 01:27 Chief complaint: Patient states: "I feel like I can't breath". Coronavirus screen: At as6 this time, the client does not indicate any symptoms associated with coronavirus-19. Ebola Screen: No symptoms or risks identified at this time. Initial Sepsis Screen: Does the patient meet any 2 criteria? No. Patient's initial sepsis screen is negative. Does the patient have a suspected source of infection? No. Patient's initial sepsis screen is negative. Risk Assessment: Do you want to hurt yourself or someone else? Patient reports no desire to harm self or others. Onset of symptoms was June 15, 2022. 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 Flu vaccine is not up to date. - Social history:: Smoking status: Patient denies any tobacco usage or history of. - Family history:: not pertinent. - Hospitalizations: : No recent hospitalization is reported. Screenin:44 [facility] ED Fall Risk Assessment (Adult) History of falling in the last 3 months, ll3 including since admission No falls in past 3 months (0 pts) Confusion or Disorientation No (0 pts) Intoxicated or Sedated No (0 pts) Impaired Gait No (0 pts) Mobility Assist Device Used No (0 pt) Altered Elimination No (0 pt) Score/Fall Risk Level 0 - 2 = Low Risk Maintained a safe environment. Abuse screen: Denies threats or abuse. Denies injuries from another. Nutritional screening: No deficits noted. Tuberculosis screening: No symptoms or risk factors identified. Assessment: 01:43 General: Appears in no apparent distress. uncomfortable, Behavior is calm, cooperative. ll3 Pain: Denies pain. Neuro: Level of Consciousness is awake, alert, obeys commands, Oriented to person, place, time, situation. Cardiovascular: Rhythm is. Respiratory: Reports shortness of breath Airway is patent Respiratory effort is even, unlabored, Respiratory pattern is regular, symmetrical, Breath sounds are clear bilaterally. 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 Derm: Skin is pink, warm \\T\\ dry. 02:59 Reassessment: Patient and/or family updated on plan of care and expected duration. Pain ll3 level reassessed. Patient is alert, oriented x 3, equal unlabored respirations, skin warm/dry/pink. Patient states feeling better. Patient states symptoms have improved. Vital Signs: 01:27 BP 131 / 86; Pulse 79; Resp 18 S; Temp 98.2(O); Pulse Ox 100% on R/A; Weight 81.65 kg as6 (R); Height 5 ft. 2 in. (157.48 cm) (R); Pain 0/10; 02:59 BP 121 / 88; Pulse 79; Resp 17; Pulse Ox 99% on R/A; ll3 01:27 Body Mass Index 32.92 (81.65 kg, 157.48 cm) as6 ED Course: 01:26 Patient arrived in ED. [email or web address] 01:27 Srinivas Enamorado MD is Attending Physician. rn 01:30 Triage completed. as6 01:31 Arm band placed on. as6 01:44 Patient has correct armband on for positive identification. Bed in low position. Call ll3 light in reach. Side rails up X 1. 02:59 No provider procedures requiring assistance completed. Patient did not have IV access ll3 during this emergency room visit. Administered Medications: 01:42 Drug: Xopenex (levalbuterol) 1.25 mg Route: Inhalation; ll3 02:59 Follow up: Response: No adverse reaction; Marked relief of symptoms ll3 Medication: 01:44 VIS not applicable for this client. ll3 Outcome: 02:53 Discharge ordered by . rn 02:59 Discharged to home ambulatory. ll3 02:59 Condition: stable 02:59 Discharge instructions given to patient, Instructed on discharge instructions, follow up and referral plans. medication usage, Demonstrated understanding of instructions, follow-up care, medications, Prescriptions given X 1. 03:00 Patient left the ED. ll3 Signatures: Srinivas Enamorado MD MD rn Jeffries, Jennifer jj Fede Boone, RN RN as6 Mable Hastings, RN RN ll3
--- NOTE | 2022-06-15 02:53 | EDPHYS ---
Physician Documentation [facility] Name: Guillermina Akins Age: 27 yrs Sex: Female : 1995 Arrival Date: 06/15/2022 Time: 01:26 Bed 24 Private MD: ED Physician Srinivas Enamorado HPI: 06/15 01:37 This 27 yrs old Female presents to ER via Ambulatory with complaints of Shortness Of rn Breath. 01:37 The patient has shortness of breath at rest, with light activity. Onset: The rn symptoms/episode began/occurred yesterday. Duration: The symptoms are continuous. The patient's shortness of breath is aggravated by anxiety, smoke, is alleviated by inhaler, nebulizer treatment. Associated signs and symptoms: Pertinent negatives: chest pain, productive cough, fever, hemoptysis. Severity of symptoms: At their worst the symptoms were moderate in the emergency department the symptoms have improved. The patient has experienced similar episodes in the past. The patient has not recently seen a physician. Pt reports having trouble breathing and taking deep breath. 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 Does not feel ill or sick. No fever. No productive cough. Reports used inhaler prior to coming in with improvement in wheezing, but ran out of neb medication. No chest pain. No hx of PE/DVT.. 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 Flu vaccine is not up to date. - Social history:: Smoking status: Patient denies any tobacco usage or history of. - Family history:: not pertinent. - Hospitalizations: : No recent hospitalization is reported. ROS: 01:44 Constitutional: Negative for fever, chills, and weight loss, Eyes: Negative for injury, rn pain, redness, and discharge, Neck: Negative for injury, pain, and swelling, Cardiovascular: Negative for chest pain, palpitations, and edema, Respiratory: + sob Abdomen/GI: Negative for abdominal pain, nausea, vomiting, diarrhea, and constipation, Back: Negative for injury and pain, MS/Extremity: Negative for injury and deformity, Skin: Negative for injury, rash, and discoloration, Neuro: Negative for headache, weakness, numbness, tingling, and seizure. Exam: 01:44 Constitutional: This is a well developed, well nourished patient who is awake, alert, defense attorney to room, tearful Head/Face: Normocephalic, atraumatic. ENT: no stridor Cardiovascular: Regular rate and rhythm. No pulse deficits. Respiratory: No retractions, no wheezing noted, speaking full sentences Skin: Warm, dry, no cyanosis MS/ Extremity: Pulses equal, no cyanosis. Neuro: Awake and alert, GCS 15 Vital Signs: 01:27 BP 131 / 86; Pulse 79; Resp 18 S; Temp 98.2(O); Pulse Ox 100% on R/A; Weight 81.65 kg as6 (R); Height 5 ft. 2 in. (157.48 cm) (R); Pain 0/10; 02:59 BP 121 / 88; Pulse 79; Resp 17; Pulse Ox 99% on R/A; ll3 01:27 Body Mass Index 32.92 (81.65 kg, 157.48 cm) as6 MDM: 01:27 Patient medically screened. rn 02:52 Differential diagnosis: Anxiety Reaction asthma. Data reviewed: vital signs, nurses rn notes, and as a result, I will discharge patient. Counseling: I had a detailed discussion with the patient and/or guardian regarding: the historical points, exam findings, and any diagnostic results supporting the discharge/admit diagnosis, the need for outpatient follow up, to return to the emergency department if symptoms worsen or persist or if there are any questions or concerns that arise at home. Response to treatment: the patient's symptoms have markedly improved after treatment, and as a result, I will discharge patient. Special discussion: I discussed with the patient/guardian in detail that at this point there is no indication for admission to the hospital. It is understood, however, that if the symptoms persist or worsen the patient needs to return immediately for re-evaluation. Based on the history and exam findings, there is no indication for further emergent testing or inpatient evaluation. I discussed with the patient/guardian the need to see the primary care provider for further evaluation of the symptoms. Administered Medications: 01:42 Drug: Xopenex (levalbuterol) 1.25 mg Route: Inhalation; ll3 02:59 Follow up: Response: No adverse reaction; Marked relief of symptoms ll3 Disposition Summary: 06/15/22 02:53 Discharge Ordered Location: Home rn Problem: an acute exacerbation rn Symptoms: have improved rn Condition: Stable rn Diagnosis - Unspecified asthma, uncomplicated rn Followup: rn - With: Private Physician - When: As needed - Reason: Recheck today's complaints, Re-evaluation by your physician Discharge Instructions: - Discharge Summary Sheet rn - Asthma, Adult rn Forms: - Medication Reconciliation Form rn - Thank You Letter rn - 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
[2022-06-15 03:04] VITALS: TEMP 98.2
[2022-06-15 03:05] VITALS: BP 121/88; O2SAT 99
== END 2022-06-15 03:00 | disposition home or self-care (01) ==
LOC: ER 01:23
DX: J45.909 Unspecified asthma, uncomplicated (principal)
CPT/HCPCS: 99284; J7614